=== PATIENT | female | born 1965 | race Caucasian/White ===

== ENCOUNTER 2017-04-08 13:19 | Emergency (ER) | payer BC ==
[2017-04-08 13:36] VITALS: BP 110/73; PULSE 67; RESP 20; TEMP 98.9
[2017-04-08] MEDS ORDERED: diphenhydrAMINE 50 MG CAP PO STA (13:46)
[2017-04-08] MEDS ORDERED: predniSONE 50 MG TAB PO STA (13:47)
[2017-04-08] MEDS ORDERED: FAMOTIDINE 20 MG TAB PO STA (13:47)
--- NOTE | 2017-04-08 13:51 | ED ---
General Adult HPI - General Chief complaint: Skin/Abscess/Foreign Body Stated complaint: bee sting-allergic reaction Time Seen by Provider: 04/08/17 13:41 Source: patient, RN notes reviewed Mode of arrival: ambulatory Limitations: no limitations - History of Present Illness Initial comments: Patient 52-year-old female who presents emergency room today with chief complaint of a bee sting that occurred 2 days ago. She states that she was stung twice both 2 days ago and one day ago. States she has a bee sting to the left side of her neck that occurred 2 days ago. Does also admit to a standing to the right thigh that occurred 1 day ago. She does admit that the areas are red and itchy. States not taken any medications for it. Denies any difficulty breathing, swallowing or any other complains. Patient denies any recent fever, chills, shortness of breath, chest pain, back pain, abdominal pain, nausea or vomiting, numbness or tingling, dysuria or hematuria, constipation or diarrhea, headaches or visual changes, or any other complaints. - Related Data Home Medications Medication Instructions Recorded Confirmed Sertraline [Zoloft] 100 mg PO DAILY 04/08/17 04/08/17 busPIRone HCL [busPIRone HCL] 5 mg PO DAILY 04/08/17 04/08/17 Previous Rx's Medication Instructions Recorded Famotidine [Pepcid] 20 mg PO BID #20 tablet 04/08/17 Hydrocortisone Cream 1 applic TOPICAL TID #1 cream..g. 04/08/17 [Hydrocortisone 1% Cream] diphenhydrAMINE [Benadryl] 1 - 2 tab PO Q6HR PRN #30 capsule 04/08/17 predniSONE 50 mg PO DAILY #3 tab 04/08/17 Allergies Allergy/AdvReac Type Severity Reaction Status Date / Time Sulfa (Sulfonamide Allergy Rash/Hives Verified 04/08/17 13:36 Antibiotics) Review of Systems ROS Statement: Those systems with pertinent positive or pertinent negative responses have been documented in the HPI. ROS Other: All systems not noted in ROS Statement are negative. Past Medical History Past Medical History: Unable to Obtain History of Any Multi-Drug Resistant Organisms: None Reported Past Surgical History: Orthopedic Surgery Past Psychological History: Depression Smoking Status: Never smoker Past Alcohol Use History: Daily Past Drug Use History: None Reported General Exam - General Exam Comments Initial Comments: General: The patient is awake and alert, in no distress, and does not appear acutely ill. Eye: Pupils are equal, round and reactive to light, extra-ocular movements are intact. No nystagmus. There is normal conjunctiva bilaterally. No signs of icterus. Ears, nose, mouth and throat: There are moist mucous membranes and no oral lesions. Neck: The neck is supple, there is no tenderness or JVD. Cardiovascular: There is a regular rate and rhythm. No murmur, rub or gallop is appreciated. Respiratory: Lungs are clear to auscultation, respirations are non-labored, breath sounds are equal. No wheezes, stridor, rales, or rhonchi. Musculoskeletal: Normal ROM, no tenderness. Strength 5/5. Sensation intact. Pulses equal bilaterally 2+. Neurological: A&O x 3. CN II-XII intact, There are no obvious motor or sensory deficits. Coordination appears grossly intact. Speech is normal. Skin: Redness and erythema to the left side of the neck and medial aspect of the right upper thigh. Areas consistent with hives local redness or warmth and swelling. Psychiatric: Cooperative, appropriate mood & affect, normal judgment. Limitations: no limitations Course Vital Signs 04/08/17 13:32 Temperature 98.9 F Pulse Rate 67 Respiratory 20 Rate Blood Pressure 110/73 O2 Sat by Pulse 100 Oximetry Medical Decision Making - Medical Decision Making Given doses of Benadryl, Pepcid, and prednisone orally here in the emergency room. Will be discharged home with prescriptions for these medications along with a topical hydrocortisone cream. Advised return for any other concerns. Disposition Clinical Impression: Allergic reaction Disposition: HOME SELF-CARE Condition: Good Instructions: Urticaria (ED) Additional Instructions: Please use medication as discussed. Please follow-up with family doctor in the next 2 days of symptoms have not improved. Please return to emergency room if the symptoms increase or worsen or for any other concerns. Prescriptions: diphenhydrAMINE [Benadryl] 1 - 2 tab PO Q6HR PRN #30 capsule PRN Reason: Allergic Reaction Famotidine [Pepcid] 20 mg PO BID #20 tablet Hydrocortisone Cream [Hydrocortisone 1% Cream] 1 applic TOPICAL TID #1 cream..g. predniSONE 50 mg PO DAILY #3 tab Referrals: Real Orozco MD [Primary Care Provider] - 1-2 days Time of Disposition: 13:50
== END 2017-04-08 13:55 | disposition home or self-care (01) ==
LOC: EC 13:19
DX: T63.441A Toxic effect of venom of bees, accidental (unintentional), initial encounter (principal); F32.9 Major depressive disorder, single episode, unspecified; Z88.2 Allergy status to sulfonamides; Z79.899 Other long term (current) drug therapy
CPT/HCPCS: 99282; J7512

== ENCOUNTER 2018-07-25 10:14 | Day surgery (SDC) | payer BC ==
[2018-07-22 13:59] VITALS: BMI 25.8
[~2018-07-25 10:14] MED LIST: LACTATED RINGERS 1,000 ML IV SCH
[2018-07-25 10:34] VITALS: RESP 16; TEMP 97.7
[2018-07-25] MEDS ORDERED: LIDOCAINE 1% 20 ML VIAL (10MG/ML) FOR IV START SQ ONE (10:43)
[2018-07-25] MEDS ORDERED: LIDOCAINE 1% INJ 10MG/ML (20 ML MDV) ONE (11:39)
[2018-07-25] MEDS ORDERED: PROPOFOL 10 MG/ML 20 ML VIAL IV ONE (11:39)
--- NOTE | 2018-07-25 12:15 | P.PCN ---
Date of Procedure: 07/25/18 Procedure(s) Performed: Procedure: Total colonoscopy. Preoperative diagnosis: Screening for neoplasia. Postoperative diagnosis: Sigmoid diverticulosis with no evidence of acute diverticulitis, strictures, polyps or cancer. Preparation: HalfLytely prep. Sedation: Was provided by anesthesia. Brief clinical history: The patient is a 53-year-old female who is scheduled for this evaluation for screening for neoplasia age being her risk factor as well as family history of colon cancer in her brother. She has no abdominal complaints, bleeding or anemia. This would be her first colonoscopy. Procedure: With the patient on her left lateral decubitus position and after informed consent and adequate sedation, the perianal area was inspected and it did not show any fissures or fistulas. There were no masses felt on digital rectal examination. The Olympus CFQ 160L video colonoscope was then inserted in the rectum in the usual fashion and advanced to the cecum. The mucosa appeared healthy. No polyps or tumors were seen. Several diverticular orifices were seen scattered in the sigmoid but I saw no evidence of acute diverticulitis or strictures. I retroflexed the endoscope in the rectum before the endoscope was withdrawn. The patient tolerated the procedure well. Plan: The patient was reassured. Discussed dietary measures. She will follow- up with you as planned and I recommended repeat exam in 5 years.
[2018-07-25 12:49] VITALS: BP 111/69; PULSE 61
== END 2018-07-25 12:49 | disposition home or self-care (01) ==
LOC: ORWHC2ENDO 10:14
DX: Z12.11 Encounter for screening for malignant neoplasm of colon (principal); K57.30 Diverticulosis of large intestine without perforation or abscess without bleeding; Z80.0 Family history of malignant neoplasm of digestive organs; F32.9 Major depressive disorder, single episode, unspecified; Z79.899 Other long term (current) drug therapy; Z88.2 Allergy status to sulfonamides
CPT/HCPCS: J2001; J2704; G0105; 45378

== ENCOUNTER 2018-09-20 12:24 | Emergency (ER) | payer BC ==
[2018-09-20 12:38] VITALS: RESP 18; TEMP 97.7
[2018-09-20] MEDS ORDERED: DIPH,PERTUS(ACELL)TETVAC-LF 0.5 ML VIAL IM ONE (13:16)
[2018-09-20] MEDS ORDERED: ACETAMINOPHEN TAB 500 MG TAB PO STA (13:16)
--- NOTE | 2018-09-20 13:23 | ED ---
General Adult HPI - General Chief complaint: Wound/Laceration Stated complaint: lt hand finger lac Source: patient, RN notes reviewed Mode of arrival: ambulatory Limitations: no limitations - History of Present Illness Initial comments: Patient is a 53 year old female who presents to the ER with complaint of left index and ring finger injury/avulsion that happened at noon today. She was doing woodworking at home and she cut her fingers on a tool. She reports that she is not up to date on her tetanus vaccination. She has not taken anything for pain. Denies blood thinner use. Denies loss of function of fingers. Patient denies any recent head trauma, loss of consciousness, fever, chills, shortness of breath, chest pain, back pain, abdominal pain, nausea or vomiting, numbness or tingling, headaches or visual changes, or any other complaints. - Related Data Home Medications Medication Instructions Recorded Confirmed Sertraline [Zoloft] 100 mg PO DAILY 04/08/17 07/22/18 busPIRone HCL 5 mg PO DAILY 04/08/17 07/22/18 Glucosamine Sulfate 500 mg PO DAILY 07/22/18 07/22/18 Lipoflavanoid 1 tab PO DAILY 07/22/18 Vit B Comp/E/FA/Soybean/Ckz808 1 each PO DAILY 07/22/18 07/22/18 [Natural Estrogen (Estronatural)] buPROPion HCL [Wellbutrin XL] 450 mg PO DAILY 07/22/18 07/22/18 Previous Rx's Medication Instructions Recorded Cephalexin [Keflex] 500 mg PO Q6HR 10 Days cap 09/20/18 Hydrocodone/Acetaminophen [Newbern 1 each PO Q6HR PRN #12 tab 09/20/18 5-325] Allergies Allergy/AdvReac Type Severity Reaction Status Date / Time Sulfa (Sulfonamide Allergy Rash/Hives Verified 09/20/18 12:38 Antibiotics) Review of Systems ROS Statement: Those systems with pertinent positive or pertinent negative responses have been documented in the HPI. ROS Other: All systems not noted in ROS Statement are negative. Past Medical History Past Medical History: No Reported History History of Any Multi-Drug Resistant Organisms: None Reported Past Surgical History: Orthopedic Surgery Additional Past Surgical History / Comment(s): Lypoma removed from shoulder & clavicle; wisdom teeth Past Anesthesia/Blood Transfusion Reactions: No Reported Reaction Past Psychological History: Depression Smoking Status: Never smoker Past Alcohol Use History: None Reported Past Drug Use History: None Reported - Past Family History Father Family Medical History: Deep Vein Thrombosis (DVT) General Exam Limitations: no limitations Head exam: Present: atraumatic, normocephalic Eye exam: Present: normal appearance Respiratory exam: Present: normal lung sounds bilaterally Cardiovascular Exam: Present: regular rate, normal rhythm Extremities exam: Present: full ROM, normal capillary refill, other (Sensation intact. Left index and ring fingers with skin avulsions over distal aspects. Able to maintain finger extension against resistance.) Neurological exam: Present: alert, oriented X3 Skin exam: Present: warm, dry Course Vital Signs 09/20/18 09/20/18 09/20/18 12:35 15:59 17:20 Temperature 97.7 F 97.7 F Pulse Rate 78 65 65 Respiratory 18 18 18 Rate Blood Pressure 138/88 119/78 119/78 O2 Sat by Pulse 99 95 95 Oximetry Procedures - Nerve Block Consent Obtained: verbal consent Time Out Performed: Yes Local Anesthetic Used: Lidocaine 1% Amount of anesthesia used: 8 (4 mL for each finger.) Side: left Nerve Blocks: digital Procedure Successful: Yes Complications: none Patient Tolerated Procedure: well, no complications Medical Decision Making - Medical Decision Making Tetanus vaccination updated. Given Tylenol for pain as patient would like to drive home. Patient would like a digital block of her two injured fingers. Left hand x-ray reveals comminuted fracture of distal phalanx left index finger. Possible foreign body distal phalanx left thumb. Extensive soft tissue injury distal index finger. Orthopedics (Too Stokes) recommended digital block, irrigation, approximation, bacitracin ointment, and wrapping. He also recommended Keflex. There was no tissue to approximate. Prescribed Keflex and Newbern. Opioid consent form completed. Case discussed in detail with attending physician Dr. Oswald. Disposition Clinical Impression: Avulsion of skin of finger Disposition: HOME SELF-CARE Condition: Good Instructions: Acute Wound Care (ED) Additional Instructions: Follow up with your PCP in 1 to 2 days. Please make an appointment with orthopedics and follow-up in 1-2 days. Return to the emergency department if any redness, swelling, drainage or fevers as these could be signs of an infection. Please take antibiotics as prescribed. Return to the emergency department for any other concerns. Prescriptions: Cephalexin [Keflex] 500 mg PO Q6HR 10 Days cap Hydrocodone/Acetaminophen [Newbern 5-325] 1 each PO Q6HR PRN #12 tab PRN Reason: Pain Is patient prescribed a controlled substance at d/c from ED?: Yes When asked, does pt state using other controlled substances?: No If prescribed controlled substance>3 days was MAPS reviewed?: Prescribed <3 Days If opioid is for acute pain is fill amount 7 days or less?: Yes If Rx opioid, was Start Talking consent form obtained?: Yes Referrals: Real Orozco MD [Primary Care Provider] - 1-2 days [place] Alvarez PAC [PHYSICIAN RIGHT OF WAY AGENT] - 1-2 days Time of Disposition: 16:55
--- NOTE | 2018-09-20 13:51 | XR ---
EXAMINATION TYPE: XR hand complete LT DATE OF EXAM: 09/20/2018 COMPARISON: None HISTORY: Laceration distal second phalanx TECHNIQUE: Three-view left hand FINDINGS: There is a laceration of the distal portion index finger left hand. There is a comminuted f racture of the diaphysis of the distal phalanx left index finger. Extensive soft tissue injury is pre sent along the medial portion of the index finger. Note is made of a radiopaque foreign body of the tip of the thumb. Consider foreign body within the n ail. IMPRESSION: 1. Comminuted fracture distal phalanx left index finger. 2. Possible foreign body at the distal phalanx left thumb 3. Extensive soft tissue injury distal index finger
[2018-09-20] MEDS ORDERED: LIDOCAINE 1% INJ 10MG/ML (20 ML MDV) SQ STA (14:23)
[2018-09-20 15:59] VITALS: BP 119/78; PULSE 65
== END 2018-09-20 17:20 | disposition home or self-care (01) ==
LOC: EC 12:24
DX: S61.201A Unspecified open wound of left index finger without damage to nail, initial encounter (principal); S61.205A Unspecified open wound of left ring finger without damage to nail, initial encounter; S62.631A Displaced fracture of distal phalanx of left index finger, initial encounter for closed fracture; F32.9 Major depressive disorder, single episode, unspecified; Z88.2 Allergy status to sulfonamides; Z79.899 Other long term (current) drug therapy; Z23 Encounter for immunization; W27.8XXA Contact with other nonpowered hand tool, initial encounter; Y93.89 Activity, other specified; Y92.009 Unspecified place in unspecified non-institutional (private) residence as the place of occurrence of the external cause
CPT/HCPCS: 73130; 90715; 99283; 90471; 64450; J2001

== ENCOUNTER → 2020-12-15 | Outpatient (CLI) | payer BC ==
--- NOTE | 2020-12-15 13:20 | MM ---
Reason for exam: screening (asymptomatic). Last mammogram was performed 4 years and 10 months ago. History: Patient is postmenopausal and had first child at age 39. Family history of breast cancer in paternal grandmother at age 60. Physical Findings: A clinical breast exam by your physician is recommended on an annual basis and results should be correlated with mammographic findings. MG 3D Screening Mammo W/Cad Bilateral CC and MLO view(s) were taken. Prior study comparison: February 03, 2016, bilateral MG 3d screening mammo w/cad. August 27, 2014, bilateral MG screening mammo w CAD. The breast tissue is heterogeneously dense. This may lower the sensitivity of mammography. There is no discrete abnormality. No significant changes when compared with prior studies. ASSESSMENT: Negative, BI-RAD 1 RECOMMENDATION: Routine screening mammogram of both breasts in 1 year.
== END | disposition home or self-care (01) ==
LOC: RADMAMWWP 07:38
PROVIDERS: ATTEND Family Medicine
DX: Z12.31 Encounter for screening mammogram for malignant neoplasm of breast (principal)
CPT/HCPCS: 77063; 77067

== ENCOUNTER 2021-11-09 06:44 | Day surgery (SDC) | payer BC ==
[2021-11-07 12:19] VITALS: BMI 25.6
--- NOTE | 2021-11-08 15:25 | HP ---
HISTORY AND PHYSICAL DATE OF SURGERY: 11/09/2021 Adali Ortega is a 56-year-old patient seen with progressive left shoulder pain. We discussed options for treatment. She elected to proceed with left shoulder arthroscopy. Consent was obtained. PAST MEDICAL HISTORY: Allergic rhinitis. PAST SURGICAL HISTORY: Noncontributory. DAILY MEDICATIONS: Ibuprofen, Zoloft. ALLERGIES: SULFA. SOCIAL HISTORY: She denies tobacco use. PHYSICAL EVALUATION OF THE LEFT SHOULDER: Flexion 150 degrees, abduction is 140 degrees, external rotation is 25 degrees with pain and weakness. Tenderness along the anterolateral rotator cuff and acromioclavicular joint. Impingement sign is positive at 90 degrees. Drop-arm sign is positive. Distal neurovascular exam is intact. Radiographs of the left shoulder revealed a type 2 acromion, evidence for acromioclavicular joint osteoarthritis as well as a calcific body consistent with calcific tendinitis. An MRI of the left shoulder revealed osteoarthritic changes about the acromioclavicular joint and bursitis. IMPRESSION: 1. Left shoulder impingement with calcific tendinitis. 2. Left shoulder acromioclavicular joint osteoarthritis. PLAN: Left shoulder arthroscopy with subacromial decompression, possible arthroscopic rotator cuff repair, Ron procedure and debridement. MMODL / IJN: [id number] /
[2021-11-09] MEDS ORDERED: LACTATED RINGERS 1,000 ML IV ONE (07:52)
[2021-11-09] MEDS ORDERED: ONDANSETRON 4 MG/2 ML VIAL IVP ONE (07:53)
[2021-11-09] MEDS ORDERED: DEXAMETHASONE SOD PHOSPHATE 4 MG/ML 1 ML VIAL IVP ONE (07:53)
[2021-11-09] MEDS ORDERED: fentaNYL (PF) 50 MCG/ML 2 ML AMP IV ONE (07:58)
[2021-11-09] MEDS ORDERED: MIDAZOLAM 2 MG/2 ML VIAL IV ONE (07:58)
[2021-11-09] MEDS ORDERED: fentaNYL (PF) 50 MCG/ML 2 ML AMP ONE (08:25)
[2021-11-09] MEDS ORDERED: PROPOFOL 10 MG/ML 20 ML VIAL IV ONE (08:25)
[2021-11-09] MEDS ORDERED: LIDOCAINE 1% INJ 10MG/ML (20 ML MDV) ONE (08:25)
[2021-11-09] MEDS ORDERED: SUCCINYLCHOLINE CHLORIDE 100 MG/5 ML SYR IV ONE (08:25)
[2021-11-09] MEDS ORDERED: ROPIVACAINE 5 MG/ML 30 ML VIAL ONE (08:25)
--- NOTE | 2021-11-09 09:41 | P.ANPRN ---
Procedure Note - Anesthesia - Nerve Block Performed Left Interscalene Single Time Out Performed: Yes ([id number]) Date of Procedure: 11/09/21 Procedure Start Time: 07:58 Procedure Stop Time: 08:03 Location of Patient: PreOp Indication: Acute Post-Operative Pain, Requested by Surgeon Specifically requested for management of pain by DrRoni: Lj Morrissey Sedation Type: Sedate with meaningful contact maintained Preparation: Sterile Prep Position: Supine Catheter: None Needle Types: Pajunk Needle Gauge: 21 Ultrasound used to visualize needle placement: Yes Ultrasound used to observe medication spread: Yes Injectate: 0.5% Ropivacaine (see comment for volume) (30cc) Blood Aspirated: No Pain Paresthesia on Injection Noted: No Resistance on Injection: Normal Image Stored and Saved: Yes Events: Uneventful and Well Tolerated
--- NOTE | 2021-11-09 09:46 | P.OP ---
Date of Procedure: 11/09/21 Preoperative Diagnosis: Left shoulder impingement Postoperative Diagnosis: 1. Left shoulder rotator cuff tear 2. Left shoulder impingement 3. Left shoulder acromioclavicular joint osteoarthritis 4. Left shoulder superficial anterior labral tear Procedure(s) Performed: 1. Left shoulder arthroscopic rotator cuff repair 2. Left shoulder arthroscopic Ron procedure 3. Left shoulder arthroscopic subacromial decompression 4. Left shoulder arthroscopic debridement labral tear Implants: 14.75 Arthrex swivel lock anchor Anesthesia: GETA, regional (Interscalene block) Surgeon: Lj Morrissey Elevator Conductor #1: Fabian Stokes Estimated Blood Loss (ml): 8 Pathology: none sent Condition: stable Disposition: PACU Indications for Procedure: 56-year-old patient seen with progressive left shoulder pain. After treatment options were discussed with her, she elected to proceed with arthroscopy. Operative Findings: See description of procedure Description of Procedure: Patient underwent an interscalene block by department of anesthesia. The patient was then taken to the operative suite. The patient underwent a general anesthetic by the department of anesthesia. The patient was placed into a lateral position and secured. There was appropriate padding of the bony prominence. Left shoulder was then prepped and draped in normal sterile orthopedic fashion. We placed the extremity in 10 pounds of longitudinal traction. A posterior incision was now made for a posterior working portal site. The trocar and cannula were inserted into the glenohumeral joint. Arthroscopy was initiated. Spinal needle was now inserted anteriorly, to ascertain the anterior working portal site. An incision was now made in that area, a trocar was inserted followed by a probe. There was some superficial tearing of the anterior labrum. The remainder labrum appeared stable. The glenohumeral joint was stable with no evidence for chondromalacia. The biceps tendon and anchor appeared stable. I debrided out the superficial labral tear anteriorly. I again probe the labrum and it was stable. Instruments now removed from the glenohumeral joint. Utilizing the posterior working portal site, the trocar and cannula were inserted into the subacromial space. Arthroscopy initiated. I made an incision 2 fingerbreadths lateral to the acromion. I introduced my trocar followed by my ArthroCare ablator. I now began ablating thick subacromial bursal tissue, which exposed the undersurface of the anterior acromion. There was diminished subacromial space. There was a very prominent anterior acromion. A motorized bur was introduced and a subacromial decompression was performed. I also excised some osteophytes off the inferior aspect of the distal clavicle. The AC joint was visualized and noted to be fairly arthritic. The motorized bur was introduced in the anterior portal site and a Ron procedure was performed without difficulty, decompressing the AC joint nicely. I turned my attention to the rotator cuff. There area of significant partial tearing along the distal supraspinatus centrally. Upon probing the area was a full-thickness perforation present. I debrided the margins getting down to stable tendon tissue. The defect measured proximal 11.5 cm and was freely mobile over the footprint. I abraded the footprint with a motorized bur. I now with assistance of Too GARNICA passed 2 everted mattress sutures through good bites of rotator cuff tendon. I now punched a hole in the footprint area for insertion of an anchor. All 4 limbs of suture were passed through the eyelet of a 4.75 Arthrex swivel lock anchor. I now placed the eyelet into the pre-punched hole. I held in place while Too GARNICA tensioned all 4 suture limbs and deployed anchor with good fixation noted. All residual suture limbs were now clipped. We had good compression of the tendon along the entire footprint. Instruments now removed from the portal sites. All portal sites were approximated with nylon suture. Sterile dressings were applied followed by a shoulder sling. Fabian GARNICA assisted in this complex case. The patient was awakened, transferred to a bed, and taken to recovery in stable condition.
[2021-11-09 09:51] VITALS: TEMP 97.1
[2021-11-09 10:38] VITALS: BP 145/85; PULSE 63; RESP 16
== END 2021-11-09 11:02 | disposition home or self-care (01) ==
LOC: OR 06:44
PROVIDERS: ATTEND Orthopaedic Surgery
DX: M75.42 Impingement syndrome of left shoulder (principal); M75.102 Unspecified rotator cuff tear or rupture of left shoulder, not specified as traumatic; M25.812 Other specified joint disorders, left shoulder; M19.012 Primary osteoarthritis, left shoulder; S43.432A Superior glenoid labrum lesion of left shoulder, initial encounter; X58.XXXA Exposure to other specified factors, initial encounter; F41.9 Anxiety disorder, unspecified; F32.A Depression, unspecified; J30.9 Allergic rhinitis, unspecified; Z79.899 Other long term (current) drug therapy; Z79.1 Long term (current) use of non-steroidal anti-inflammatories (NSAID); Z88.2 Allergy status to sulfonamides
CPT/HCPCS: 64415; 76942; 29826; 29827; 29824; C1713; J2250; J1100; J0690; J2405; J2001; J3010; J2795; J0330; J2704

== ENCOUNTER 2024-04-13 21:53 | Inpatient (IN) | payer BC ==
[2024-04-13] MEDS: SODIUM CHLORIDE 0.9% 1,000 ML IV STA ×3 (23:06→23:12)
[2024-04-13] MEDS: PANTOPRAZOLE 40 MG/10 ML VIAL IVP STA (23:08)
[2024-04-13] MEDS: KETOROLAC 15 MG/ML 1 ML VIAL IVP STA (23:10)
[2024-04-13 23:11] LABS: Basophils # (A) 0.1 k/uL (0-0.2); Basophils % (A) 0 %; Eosinophils # (A) 0.2 k/uL (0-0.7); Eosinophils % (A) 1 %; HCT 41.5 % (34.0-46.0); HGB 13.7 gm/dL (11.4-16.0); Lymphocytes # (A) 1.1 k/uL (1.0-4.8); Lymphocytes % (A) 6 %; MCH 28.3 pg (25.0-35.0); MCV 85.9 fL (80.0-100.0); Mean Platelet Volume 7.3; Monocytes # (A) 0.8 k/uL (0-1.0); Monocytes % (A) 4 %; Neutrophils # (A) 17.1 k/uL (1.3-7.7); Neutrophils % (A) 88 %; Platelet Count 244 k/uL (150-450); RBC 4.83 m/uL (3.80-5.40); RDW 12.4 % (11.5-15.5); WBC 19.4 k/uL (3.8-10.6)
[2024-04-13] MEDS: ONDANSETRON 4 MG/2 ML VIAL IVP STA (23:12)
[2024-04-13 23:21] LABS: ALT 17 U/L (4-34); AST 17 U/L (14-36); African American GFR (CKD) >90 (>60 ml/min/1.73 sqM); Albumin 4.1 g/dL (3.5-5.0); Alkaline Phosphatase 75 U/L (38-126); Amylase 33 U/L (30-110); Anion Gap 9 mmol/L; Blood Urea Nitrogen 11 mg/dL (7-17); Calcium 10.6 mg/dL (8.4-10.2); Carbon Dioxide 22 mmol/L (22-30); Chloride 103 mmol/L (98-107); Glucose 116 mg/dL (74-99); Lipase 64 U/L (23-300); Non-African American GFR(CKD) >90 (>60 ml/min/1.73 sqM); Potassium 4.2 mmol/L (3.5-5.1); Sodium 134 mmol/L (137-145); Total Protein 6.6 g/dL (6.3-8.2)
--- NOTE | 2024-04-14 00:26 | CT ---
EXAMINATION TYPE: CT abdomen pelvis w con DATE OF EXAM: 04/14/2024 HISTORY: Pt. presents to ED w/ abd. pain located in the center of abd. Pt. has been vomiting, denies diarrhea. Pt. attempted to take nights meds unable to keep down. Pt. has had low grade fever at home. CT DLP: 724.2mGycm Automated Exposure Control for Dose Reduction was Utilized. CONTRAST: CT scan of the abdomen and pelvis is performed with IV Contrast, patient injected with 100 mL of Isov ue 300. COMPARISON: None. FINDINGS: LUNG BASES: No significant abnormality is appreciated. LIVER/GB: No significant abnormality is appreciated. PANCREAS: No significant abnormality is seen. SPLEEN: No significant abnormality is seen. ADRENALS: No significant abnormality is seen. KIDNEYS: No significant abnormality is seen. BOWEL: Appendicolith in the base of the appendix coronal image 41. Appendix abnormally dilated up to 11 mm coronal image 38 There is [id number] severe ill-defined fluid and fat stranding in the right pelvis surrounding the appendix. No well-formed fluid collection or abscess. Some reactive comer ge with abnormal wall thickening of adjacent small bowel loops near this level. UTERUS/ADNEXA: Anteverted uterus. Small small amount of free fluid in the pelvis. Some scattered colo maru diverticula greatest distally. No CT evidence for acute diverticulitis. No abnormal small or larg e bowel dilatation. LYMPH NODES: No greater than 1cm abdominal or pelvic lymph nodes are appreciated. OSSEOUS STRUCTURES: No significant abnormality is seen. OTHER: No significant additional abnormality is seen. IMPRESSION: CT findings consistent with acute appendicitis as detailed above. Critical results indicate ordering emergency room physician by phone call at time of dictation.
[2024-04-14] MEDS ORDERED: MORPHINE SULFATE 4 MG/ML SYRINGE IV PRN (00:38)
[2024-04-14] MEDS ORDERED: NALOXONE 0.4 MG/ML 1 ML VIAL IV PRN ×2 (00:38→09:44)
--- NOTE | 2024-04-14 00:45 | ED ---
General Adult HPI - General Chief complaint: Abdominal Pain Stated complaint: Abdominal Pain Time Seen by Provider: 04/13/24 22:50 Source: patient, RN notes reviewed, old records reviewed Mode of arrival: ambulatory Limitations: no limitations - History of Present Illness Initial comments: Patient is a 59-year-old female who presents emergency department complaining of abdominal pain. Is been ongoing for the last 2 days. Endorses nausea and vomiting and has had poor oral intake over this period of time. Denies any diarrhea or constipation. Denies any urinary complaints. Denies any vaginal discharge or bleeding. Is concerned that she either has a hemorrhoid or possible rectal prolapse and wishes for evaluation. Denies chest pain or shortness of breath. Has no acute complaints. Presents for further evaluation at this time. No significant intra-abdominal surgery in the past. - Related Data Home Medications Medication Instructions Recorded Confirmed Sertraline [Zoloft] 200 mg PO HS 04/08/17 11/07/21 busPIRone HCL 5 mg PO HS 04/08/17 11/07/21 Glucosamine Sulfate 500 mg PO DAILY 07/22/18 11/07/21 Vit B Comp/E/FA/Soybean/Icv139 1 each PO DAILY 07/22/18 11/07/21 [Natural Estrogen (Estronatural)] buPROPion HCL [Wellbutrin XL] 300 mg PO HS 07/22/18 11/07/21 buPROPion XL [Wellbutrin XL] 150 mg PO HS 11/07/21 11/07/21 Previous Rx's Medication Instructions Recorded HYDROcodone/APAP 5-325MG [[place] 1 tab PO Q6HR PRN #21 tab 11/09/21 5-325] Allergies Allergy/AdvReac Type Severity Reaction Status Date / Time Sulfa (Sulfonamide Allergy Rash/Hives Verified 04/13/24 22:06 Antibiotics) Review of Systems ROS Statement: Those systems with pertinent positive or pertinent negative responses have been documented in the HPI. Review of Systems: CONST: Denies fever EYES: Denies blurry vision ENT: Denies nasal congestion C/V: Denies Chest pain RESP: Denies shortness of breath GI: Endorses abdominal pain : Denies dysuria SKIN: Denies rash. MSK: Denies joint pain. NEURO: Denies headache ROS Other: All systems not noted in ROS Statement are negative. Past Medical History Past Medical History: No Reported History History of Any Multi-Drug Resistant Organisms: None Reported Past Surgical History: Orthopedic Surgery Additional Past Surgical History / Comment(s): Lypoma removed from shoulder & clavicle; wisdom teeth Past Anesthesia/Blood Transfusion Reactions: No Reported Reaction Past Psychological History: Depression Past Alcohol Use History: None Reported - Past Family History Father Family Medical History: Deep Vein Thrombosis (DVT) General Exam - General Exam Comments Initial Comments: General: Appears in mild distress secondary to abdominal pain. HEAD: Normal with no signs of head trauma. EYES: PERRLA, EOMI, conjunctiva normal, no discharge. ENT: Hearing grossly intact, normal oropharynx. Dry mucous membrane RESPIRATORY: Clear breath sounds bilaterally. No wheezes, rales, or rhonchi. C/V: Regular rate and rhythm. S1 and S2 auscultated, no edema, peripheral pulses 2+ and intact throughout ABD: Abdomen soft, nondistended. Tender palpation periumbilically. No guarding or rebound tenderness. No peritoneal signs. EXT: Normal range of motion, no obvious deformity SKIN: No rashes or lesions observed on exposed skin. NEURO: Alert and oriented x 4. Limitations: no limitations Course Vital Signs 04/13/24 04/14/24 22:00 00:40 Temperature 99.3 F Pulse Rate 101 H 80 Respiratory 16 17 Rate Blood Pressure 91/63 114/67 O2 Sat by Pulse 97 98 Oximetry Medical Decision Making - Medical Decision Making Was pt. sent in by a medical professional or institution ([facility] Steele, [facility], urgent care, hospital, or [facility]...) When possible be specific @ -No Did you speak to anyone other than the patient for history (EMS, parent, family, police, friend...)? What history was obtained from this source @ -No Did you review nursing and triage notes (agree or disagree)? Why? @ -I reviewed and agree with nursing and triage notes Were old charts reviewed (outside hosp., previous admission, EMS record, old EKG, old radiological studies, urgent care reports/EKG's, [facility] records)? Report findings @ -No old charts were reviewed Differential Diagnosis (chest pain, altered mental status, abdominal pain women, abdominal pain men, vaginal bleeding, weakness, fever, dyspnea, syncope, headache, dizziness, GI bleed, back pain, seizure, CVA, palpatations, mental health, musculoskeletal)? @ -Differential Abdominal Pain Women: Appendicitis, Cholecystitis, diverticulosis, ischemic bowel, pancreatitis, hepatitis, UTI, gastroenteritis, AAA, incarcerated hernia, bowel obstruction, constipation, inflammatory bowel, hepatitis, peptic ulcer disease, splenic infarction, perforated viscus, vulvitis, ovarian torsion, PID, kidney stone, placenta abruption, this is not meant to be an all-inclusive list EKG interpreted by me (3pts min.). @ -As above X-rays interpreted by me (1pt min.). @ -None done CT interpreted by me (1pt min.). @ -CT reveals acute appendicitis U/S interpreted by me (1pt. min.). @ -None done What testing was considered but not performed or refused? (CT, X-rays, U/S, labs)? Why? @ -None What meds were considered but not given or refused? Why? @ -None Did you discuss the management of the patient with other professionals (professionals i.e. , PA, [employer], lab, RT, psych nurse, social media project manager, ergonomist, teacher, field health officer, case management social worker)? Give summary @ -Discussed with on-call surgeon Dr. Hernandez who accepted the admission. Was smoking cessation discussed for >3mins.? @ -No Was critical care preformed (if so, how long)? @ -No Were there social determinants of health that impacted care today? How? (Homelessness, low income, unemployed, alcoholism, drug addiction, transportation, low edu. Level, literacy, decrease access to med. care, custodial, rehab)? @ -No Was there de-escalation of care discussed even if they declined (Discuss DNR or withdrawal of care, Hospice)? DNR status @ -No What co-morbidities impacted this encounter? (DM, HTN, Smoking, COPD, CAD, Cancer, CVA, ARF, Chemo, Hep., AIDS, mental health diagnosis, sleep apnea, morbid obesity)? @ -None Was patient admitted / discharged? Hospital course, mention meds given and route, prescriptions, significant lab abnormalities, going to OR and other pertinent info. @ -Patient presents with abdominal pain for 2 days. We will obtain abdominal workup, CT imaging. She does appear dehydration will be given IV fluids as well as symptomatic treatment with IV Toradol and Zofran. Patient in agreement this plan. Patient also received IV Protonix. She received a total of 2 L fluid bolus. Vital signs remarkable for slight lower blood pressure on presentation which improved with IV fluids. EKG showed no signs of acute ischemia. CT reveals acute appendicitis. Labs remarkable for leukocytosis of 19.4. Lactic acid within normal limits. Vital signs unremarkable. I did the patient. She is made NPO. Blood cultures obtained and sent. Patient started on IV Zosyn. I spoke with on-call surgeon, Dr. Hernandez who accepted the admission was in agreement this plan. Medicine consulted for medical management, [facility] physician group Dr. Adrian. Undiagnosed new problem with uncertain prognosis? @ -No Drug Therapy requiring intensive monitoring for toxicity (Heparin, Nitro, Insulin, Cardizem)? @ -No Were any procedures done? @ -No Diagnosis/symptom? @ -Appendicitis Acute, or Chronic, or Acute on Chronic? @ -Acute Uncomplicated (without systemic symptoms) or Complicated (systemic symptoms)? @ -Complicated Side effects of treatment? @ -No Exacerbation, Progression, or Severe Exacerbation? @ -No Poses a threat to life or bodily function? How? (Chest pain, [place], [place], pneumonia, PE, COPD, DKA, ARF, appy, cholecystitis, CVA, Diverticulitis, Homicidal, Su[place], threat to staff... and all critical care pts) @ -Yes - Lab Data Result diagrams: 04/13/24 22:38 04/13/24 22:38 Lab Results 04/13/24 04/13/24 04/13/24 Range/Units 22:38 22:38 22:38 WBC 19.4 H (3.8-10.6) k/uL RBC 4.83 (3.80-5.40) m/uL Hgb 13.7 (11.4-16.0) gm/dL Hct 41.5 (34.0-46.0) % MCV 85.9 (80.0-100.0) fL MCH 28.3 (25.0-35.0) pg MCHC 33.0 (31.0-37.0) g/dL RDW 12.4 (11.5-15.5) % Plt Count 244 (150-450) k/uL MPV 7.3 Neutrophils % 88 % Lymphocytes % 6 % Monocytes % 4 % Eosinophils % 1 % Basophils % 0 % Neutrophils # 17.1 H (1.3-7.7) k/uL Lymphocytes # 1.1 (1.0-4.8) k/uL Monocytes # 0.8 (0-1.0) k/uL Eosinophils # 0.2 (0-0.7) k/uL Basophils # 0.1 (0-0.2) k/uL Sodium 134 L (137-145) mmol/L Potassium 4.2 (3.5-5.1) mmol/L Chloride 103 (98-107) mmol/L Carbon Dioxide 22 (22-30) mmol/L Anion Gap 9 mmol/L BUN 11 (7-17) mg/dL Creatinine 0.72 (0.52-1.04) mg/dL Est GFR (CKD-EPI)AfAm >90 (>60 ml/min/1.73 sqM) Est GFR (CKD-EPI)NonAf >90 (>60 ml/min/1.73 sqM) Glucose 116 H (74-99) mg/dL Plasma Lactic Acid Buster 0.8 (0.7-2.0) mmol/L Calcium 10.6 H (8.4-10.2) mg/dL Total Bilirubin 1.0 (0.2-1.3) mg/dL AST 17 (14-36) U/L ALT 17 (4-34) U/L Alkaline Phosphatase 75 (38-126) U/L Total Protein 6.6 (6.3-8.2) g/dL Albumin 4.1 (3.5-5.0) g/dL Amylase 33 (30-110) U/L Lipase 64 (23-300) U/L Influenza Type A (PCR) (Not Detectd) Influenza Type B (PCR) (Not Detectd) RSV (PCR) (Not Detectd) SARS-CoV-2 (PCR) (Not Detectd) 04/13/24 Range/Units 22:38 WBC (3.8-10.6) k/uL RBC (3.80-5.40) m/uL Hgb (11.4-16.0) gm/dL Hct (34.0-46.0) % MCV (80.0-100.0) fL MCH (25.0-35.0) pg MCHC (31.0-37.0) g/dL RDW (11.5-15.5) % Plt Count (150-450) k/uL MPV Neutrophils % % Lymphocytes % % Monocytes % % Eosinophils % % Basophils % % Neutrophils # (1.3-7.7) k/uL Lymphocytes # (1.0-4.8) k/uL Monocytes # (0-1.0) k/uL Eosinophils # (0-0.7) k/uL Basophils # (0-0.2) k/uL Sodium (137-145) mmol/L Potassium (3.5-5.1) mmol/L Chloride (98-107) mmol/L Carbon Dioxide (22-30) mmol/L Anion Gap mmol/L BUN (7-17) mg/dL Creatinine (0.52-1.04) mg/dL Est GFR (CKD-EPI)AfAm (>60 ml/min/1.73 sqM) Est GFR (CKD-EPI)NonAf (>60 ml/min/1.73 sqM) Glucose (74-99) mg/dL Plasma Lactic Acid Buster (0.7-2.0) mmol/L Calcium (8.4-10.2) mg/dL Total Bilirubin (0.2-1.3) mg/dL AST (14-36) U/L ALT (4-34) U/L Alkaline Phosphatase (38-126) U/L Total Protein (6.3-8.2) g/dL Albumin (3.5-5.0) g/dL Amylase (30-110) U/L Lipase (23-300) U/L Influenza Type A (PCR) Not Detected (Not Detectd) Influenza Type B (PCR) Not Detected (Not Detectd) RSV (PCR) Not Detected (Not Detectd) SARS-CoV-2 (PCR) Not Detected (Not Detectd) - EKG Data -: EKG Interpreted by Me EKG Comments: 12-lead Electrocardiogram Interpretation Note EKG was reviewed and interpreted by myself. 12-lead ECG performed at 2315 is interpreted by me as revealing normal sinus rhythm at a rate of 75 beats per minute. [place] is normal. [place] interval is 142 ms, QRS duration is 83 ms, QTc is 390 ms.. There were no ST or T wave abnormalities to suggest myocardial ischemia or injury. R wave progression across the precordium was satisfactory. By my interpretation this EKG is non-diagnostic for acute ischemia. Disposition Clinical Impression: Appendicitis Disposition: ADMITTED IP TO THIS HOSP Condition: Stable Referrals: Real Orozco MD [Primary Care Provider] - 1-2 days Time of Disposition: 00:38
[2024-04-14] MEDS: PIPERACILLIN-TAZOBACTAM 3.375 GM in SODIUM CHLORIDE 0.9% 100 ML IVPB SCH (00:52)
[2024-04-14 03:08] LABS: INR 1.1 (<1.2); Partial Thromboplastin Time 26.9 sec (22.0-30.0); Prothrombin Time 11.9 sec (10.0-12.5)
[2024-04-14] MEDS: IV FLUID CONTINUATION 1,000 ML IV ONE (08:00)
[2024-04-14] MEDS: ONDANSETRON 4 MG/2 ML VIAL IVP PRN (08:19)
[2024-04-14] MEDS: DEXAMETHASONE SOD PHOSPHATE 4 MG/ML 1 ML VIAL IVP STA (08:20)
[2024-04-14] MEDS: FAMOTIDINE 20 MG/2 ML VIAL IV STA (08:22)
[2024-04-14] MEDS: diphenhydrAMINE 50 MG/ML 1 ML VIAL IVP STA (08:26)
[2024-04-14] MEDS: HEPARIN SODIUM,PORCINE 5,000 UNIT/ML 1 ML VIAL SQ STA (08:29)
[2024-04-14] MEDS ORDERED: MIDAZOLAM 2 MG/2 ML VIAL ONE (08:44)
[2024-04-14] MEDS ORDERED: SUCCINYLCHOLINE CHLORIDE 200 MG/10 ML VIAL IV ONE (08:44)
[2024-04-14] MEDS ORDERED: PHENYLEPHRINE-0.9% NACL SYG 1,000 MCG/10 ML SYRINGE ONE (08:44)
[2024-04-14] MEDS ORDERED: fentaNYL (PF) 50 MCG/ML 2 ML AMP ONE (08:44)
[2024-04-14] MEDS ORDERED: PROPOFOL 10 MG/ML 20 ML VIAL IV ONE (08:44)
[2024-04-14] MEDS ORDERED: ROCURONIUM 10 MG/ML (5 ML VIAL) IV ONE (08:44)
[2024-04-14] MEDS ORDERED: KETOROLAC 15 MG/ML 1 ML VIAL ONE (08:44)
[2024-04-14] MEDS ORDERED: LIDOCAINE 1% INJ 10MG/ML (20 ML MDV) ONE (08:44)
[2024-04-14] MEDS ORDERED: GLYCOPYRROLATE 0.2 MG/ML 2 ML VIAL ONE (08:44)
[2024-04-14] MEDS ORDERED: NEOSTIGMINE 1 MG/ML 10 ML VIAL ONE (08:44)
--- NOTE | 2024-04-14 08:52 | P.GSHP ---
History of Present Illness H&P Date: 04/14/24 Chief Complaint: Acute appendicitis This is a 59-year-old female whose had a 1 week history of nausea vomiting abdominal pain. Patient was seen emergency room and found to have evidence of acute appendicitis. Past Medical History Past Medical History: No Reported History History of Any Multi-Drug Resistant Organisms: None Reported Past Surgical History: Orthopedic Surgery Additional Past Surgical History / Comment(s): Lypoma removed from shoulder & clavicle; wisdom teeth Past Anesthesia/Blood Transfusion Reactions: No Reported Reaction Past Psychological History: Depression Past Alcohol Use History: None Reported - Past Family History Father Family Medical History: Deep Vein Thrombosis (DVT) Medications and Allergies Home Medications Medication Instructions Recorded Confirmed Type Sertraline [Zoloft] 100 mg PO HS 04/08/17 04/14/24 History busPIRone HCL 5 mg PO BID 04/08/17 04/14/24 History buPROPion HCL [Wellbutrin XL] 300 mg PO HS 07/22/18 04/14/24 History Semaglutide [Wegovy] 1 mg SQ TH 04/14/24 04/14/24 History Allergies Allergy/AdvReac Type Severity Reaction Status Date / Time Sulfa (Sulfonamide Allergy Rash/Hives Verified 04/14/24 08:10 Antibiotics) Surgical - Exam Vital Signs Temp Pulse Resp BP Pulse Ox 99.3 F 101 H 16 91/63 97 04/13/24 22:00 04/13/24 22:00 04/13/24 22:00 04/13/24 22:00 04/13/24 22:00 - General well developed, well nourished, no distress - Eyes PERRL - ENT normal pinna - Neck no masses - Respiratory normal expansion - Cardiovascular Rhythm: regular - Abdomen Right lower quadrant pain Abdomen: soft Results - Labs 04/13/24 22:38 04/13/24 22:38 Abnormal Lab Results - Last 24 Hours (Table) 04/13/24 04/13/24 Range/Units 22:38 22:38 WBC 19.4 H (3.8-10.6) k/uL Neutrophils # 17.1 H (1.3-7.7) k/uL Sodium 134 L (137-145) mmol/L Glucose 116 H (74-99) mg/dL Calcium 10.6 H (8.4-10.2) mg/dL Diabetes panel 04/13/24 Range/Units 22:38 Sodium 134 L (137-145) mmol/L Potassium 4.2 (3.5-5.1) mmol/L Chloride 103 (98-107) mmol/L Carbon Dioxide 22 (22-30) mmol/L BUN 11 (7-17) mg/dL Creatinine 0.72 (0.52-1.04) mg/dL Glucose 116 H (74-99) mg/dL Calcium 10.6 H (8.4-10.2) mg/dL AST 17 (14-36) U/L ALT 17 (4-34) U/L Alkaline Phosphatase 75 (38-126) U/L Total Protein 6.6 (6.3-8.2) g/dL Albumin 4.1 (3.5-5.0) g/dL Calcium panel 04/13/24 Range/Units 22:38 Calcium 10.6 H (8.4-10.2) mg/dL Albumin 4.1 (3.5-5.0) g/dL Pituitary panel 04/13/24 Range/Units 22:38 Sodium 134 L (137-145) mmol/L Potassium 4.2 (3.5-5.1) mmol/L Chloride 103 (98-107) mmol/L Carbon Dioxide 22 (22-30) mmol/L BUN 11 (7-17) mg/dL Creatinine 0.72 (0.52-1.04) mg/dL Glucose 116 H (74-99) mg/dL Calcium 10.6 H (8.4-10.2) mg/dL Adrenal panel 04/13/24 Range/Units 22:38 Sodium 134 L (137-145) mmol/L Potassium 4.2 (3.5-5.1) mmol/L Chloride 103 (98-107) mmol/L Carbon Dioxide 22 (22-30) mmol/L BUN 11 (7-17) mg/dL Creatinine 0.72 (0.52-1.04) mg/dL Glucose 116 H (74-99) mg/dL Calcium 10.6 H (8.4-10.2) mg/dL Total Bilirubin 1.0 (0.2-1.3) mg/dL AST 17 (14-36) U/L ALT 17 (4-34) U/L Alkaline Phosphatase 75 (38-126) U/L Total Protein 6.6 (6.3-8.2) g/dL Albumin 4.1 (3.5-5.0) g/dL Assessment and Plan Assessment: Appendicitis. Will perform laparoscopic appendectomy.
[2024-04-14] MEDS: LIDOCAINE 1%-EPI 1:100,000 20 ML VIAL SQ ONE (08:57)
[2024-04-14] MEDS: LACTATED RINGERS 1,000 ML IV ONE (09:03)
--- NOTE | 2024-04-14 09:44 | P.OP ---
Date of Procedure: 04/14/24 Preoperative Diagnosis: Acute appendicitis Postoperative Diagnosis: Perforated appendicitis Procedure(s) Performed: Laparoscopic appendectomy Anesthesia: LUCAS Surgeon: Cedric Hernandez Estimated Blood Loss (ml): 5 Pathology: other (Appendix) Condition: stable Disposition: PACU Description of Procedure: R the patient's placed on the operating table in the supine position. The patient received general anesthesia. The abdomen was prepped and draped in the usual sterile fashion. The skin was anesthetized 1% local Xylocaine at the trocar sites. Using an 11 blade the skin was incised at the umbilicus. The umbilicus was grasped with a Whitney clamp and then a Veress needle was placed into the peritoneal cavity. Position of the Veress needle was confirmed with positive drop test. After adequate insufflation a 5 mm trocar was placed into the peritoneal cavity. The abdomen was further insufflated. And then the laparoscope was placed in the peritoneal cavity. Next a 5 mm trocar was placed in the midline suprapubic position. And then a 10 mm trocar was placed in the midline epigastric position. The patient was rotated with the right side up and in Trendelenburg. The appendix was visualized. The appendix appeared to be inflamed. There was perforation of the appendix seen the appendix was grasped and then using the Harmonic scissors the mesoappendix was divided. A PDS Endoloop was then placed around the base of the appendix. And then the appendix was divided using Harmonic scissors. The appendix was placed into an Endo Catch and brought out through the 10 mm trocar site. The abdomen was irrigated. There is no bleeding seen. A MARIANA drain was placed in the right lower quadrant brought to the epigastric port site. The trochars withdrawn. The skin was closed interrupted 3-0 Monocryl suture. Dermabond dressing was applied. Patient was sent to recovery room in stable condition.
[2024-04-14] MEDS: HYDROmorphone 1 MG/ML 1 ML SYRINGE IVP PRN (10:52)
[2024-04-14] MEDS: PANTOPRAZOLE 40 MG/10 ML VIAL IV SCH (10:52)
--- NOTE | 2024-04-14 11:05 | P.CONS ---
History of Present Illness - Reason for Consult Consult date: 04/14/24 - Chief Complaint Medical management - History of Present Illness 59-year-old woman with medical history of mood disorder presented for nausea, vomiting, abdominal pain. Patient was taken to the operating room for appendicitis which was noted. Medicine was consulted subsequently for medical management. Patient has no new complaints at this time, feels her surgery went well. She is sitting at bedside with no complaints of pain, fevers, chills. She has a drain in place which is draining serosanguineous fluid. She is hemodynamically stable. CBC shows leukocytosis to 19. Basic metabolic panel is mostly unremarkable. Viral panel is negative. All Systems reviewed and pertinent positives and negatives noted in HPI, all other symptoms are negative Gen: In NAD, non-toxic HEENT: normocephalic, atraumatic, hearing acuity is intant, mucous membranes moist CVS: perfusing all extremities well, no pitting edema, Respiratory: symmetric chest expansion, no accessory muscle use, GI: soft, NTTP, ND, : no suprapubic tenderness, no CVA tenderness MSK/Derm: no rashes, cyanosis Neuro: CN II-XII intact, no motor weakness, Psych: cooperative, euthymic mood, judgment and insight is intact Labs and images as above Assessment/plan: Mood disorder -Continue Wellbutrin, BuSpar, sertraline Patient is noted to be on semaglutide at home, we will follow her blood sugars and add insulin sliding scale if necessary Thank you for this consult. Will continue to follow along with you, please reach out if there are any questions or concerns. Past Medical History Past Medical History: No Reported History History of Any Multi-Drug Resistant Organisms: None Reported Past Surgical History: Orthopedic Surgery Additional Past Surgical History / Comment(s): Lypoma removed from shoulder & clavicle; wisdom teeth Past Anesthesia/Blood Transfusion Reactions: No Reported Reaction Past Psychological History: Depression Past Alcohol Use History: None Reported - Past Family History Father Family Medical History: Deep Vein Thrombosis (DVT) Medications and Allergies Home Medications Medication Instructions Recorded Confirmed Type Sertraline [Zoloft] 100 mg PO HS 04/08/17 04/14/24 History busPIRone HCL 5 mg PO BID 04/08/17 04/14/24 History buPROPion HCL [Wellbutrin XL] 300 mg PO HS 07/22/18 04/14/24 History Semaglutide [Wegovy] 1 mg SQ TH 04/14/24 04/14/24 History Allergies Allergy/AdvReac Type Severity Reaction Status Date / Time Sulfa (Sulfonamide Allergy Rash/Hives Verified 04/14/24 08:10 Antibiotics) Physical Exam Osteopathic Statement: *. No significant issues noted on an osteopathic structural exam other than those noted in the History and Physical/Consult. Vitals: Vital Signs Temp Pulse Pulse Pulse Resp BP BP 04/14/24 10:22 81 16 96/51 04/14/24 10:07 81 16 95/51 04/14/24 09:52 72 14 101/53 04/14/24 09:37 98.2 F 76 14 115/53 04/14/24 08:07 98.3 F 83 16 92/50 04/14/24 07:29 100.7 F H 85 18 90/46 04/14/24 06:00 91 17 95/51 04/14/24 00:40 80 17 114/67 04/13/24 22:00 99.3 F 101 H 16 91/63 Pulse Ox 04/14/24 10:22 98 04/14/24 10:07 100 04/14/24 09:52 100 04/14/24 09:37 100 04/14/24 08:07 96 04/14/24 07:29 94 L 04/14/24 06:00 95 04/14/24 00:40 98 04/13/24 22:00 97 Intake and Output 04/13/24 04/14/24 04/14/24 22:59 06:59 14:59 Intake Total 1300 Balance 1300 Intake: IV 1300 Other: Weight 68.039 kg 68.039 kg Results CBC & Chem 7: 04/13/24 22:38 04/13/24 22:38 Labs: Abnormal Lab Results - Last 24 Hours (Table) 04/13/24 04/13/24 Range/Units 22:38 22:38 WBC 19.4 H (3.8-10.6) k/uL Neutrophils # 17.1 H (1.3-7.7) k/uL Sodium 134 L (137-145) mmol/L Glucose 116 H (74-99) mg/dL Calcium 10.6 H (8.4-10.2) mg/dL
[2024-04-14] MEDS: KETOROLAC 15 MG/ML 1 ML VIAL IVP SCH (12:04)
[2024-04-14] MEDS: BENZOCAINE/MENTHOL LOZENG 1 EACH LOZENGE MUCOUS MEM PRN (21:36)
--- NOTE | 2024-04-14 22:11 | P.CONS ---
History of Present Illness - Reason for Consult Consult date: 04/14/24 Perforated appendicitis Requesting physician: Cedric Hernandez - Chief Complaint Abdominal pain x 2 days - History of Present Illness Patient is a 59-year-old female with past medical history significant depression presenting to the hospital for evaluation of abdominal pain and this patient symptom has been going on for 2 days before presentation to the hospital patient pain has been mostly in the right lower abdominal area patient describes the pain to be sharp, moderate intensity started radiation did have associated nausea and vomiting decreased oral intake but denies having any diarrhea did have some chills on presentation to the hospital patient did have a low-grade fever subsequently spiking fever 100.7 F patient was not tachycardic or hypotensive not hypoxic no need for supplemental oxygen patient did have white count of 19.4 with a left shift creatinine has been normal electrolytes are normal liver isms normal influenza RSV COVID testing was negative patient did have abdominal pelvis CT with the CT findings suggestive of acute appendicitis patient was taken to the OR noticed to have perforated appendicitis in this patient who status post laparoscopic appendectomy patient was started on Zosyn infectious disease was consulted for further management of antibiotic therapy Review of Systems Positive point and negatives has been mentioned in the HPI, complete review of systems was performed and all other systems are negative Past Medical History Past Medical History: No Reported History History of Any Multi-Drug Resistant Organisms: None Reported Past Surgical History: Orthopedic Surgery Additional Past Surgical History / Comment(s): Lypoma removed from shoulder & clavicle; wisdom teeth Past Anesthesia/Blood Transfusion Reactions: No Reported Reaction Past Psychological History: Depression Past Alcohol Use History: None Reported - Past Family History Father Family Medical History: Deep Vein Thrombosis (DVT) Medications and Allergies Home Medications Medication Instructions Recorded Confirmed Type Sertraline [Zoloft] 100 mg PO HS 04/08/17 04/14/24 History busPIRone HCL 5 mg PO BID 04/08/17 04/14/24 History buPROPion HCL [Wellbutrin XL] 300 mg PO HS 07/22/18 04/14/24 History Semaglutide [Wegovy] 1 mg SQ TH 04/14/24 04/14/24 History Allergies Allergy/AdvReac Type Severity Reaction Status Date / Time Sulfa (Sulfonamide Allergy Rash/Hives Verified 04/14/24 08:10 Antibiotics) Physical Exam Vitals: Vital Signs Temp Pulse Pulse Pulse Resp BP BP 04/14/24 10:22 81 16 96/51 04/14/24 10:07 81 16 95/51 04/14/24 09:52 72 14 101/53 04/14/24 09:37 98.2 F 76 14 115/53 04/14/24 08:07 98.3 F 83 16 92/50 04/14/24 07:29 100.7 F H 85 18 90/46 04/14/24 06:00 91 17 95/51 04/14/24 00:40 80 17 114/67 04/13/24 22:00 99.3 F 101 H 16 91/63 Pulse Ox 04/14/24 10:22 98 04/14/24 10:07 100 04/14/24 09:52 100 04/14/24 09:37 100 04/14/24 08:07 96 04/14/24 07:29 94 L 04/14/24 06:00 95 04/14/24 00:40 98 04/13/24 22:00 97 Intake and Output 04/13/24 04/14/24 04/14/24 22:59 06:59 14:59 Intake Total 1300 Balance 1300 Intake: IV 1300 Other: Weight 68.039 kg 68.039 kg GENERAL DESCRIPTION: Middle-aged female lying in bed, no distress. No tachypnea or accessory muscle of respiration use. HEENT: Shows Pallor , no scleral icterus. Oral mucous membrane is dry. No pharyngeal erythema or thrush NECK: Trachea central, no thyromegaly. LUNGS: Unlabored breathing. Clear to auscultation anteriorly. No wheeze or crackle. HEART: S1, S2, regular rate and rhythm. No loud murmur ABDOMEN: Soft, mild distention and tenderness EXTREMITIES: No edema of feet. SKIN: No rash, no masses palpable. NEUROLOGICAL: The patient is awake, alert, oriented x3, mood and affect normal. Results CBC & Chem 7: 04/13/24 22:38 04/13/24 22:38 Labs: Abnormal Lab Results - Last 24 Hours (Table) 04/13/24 04/13/24 Range/Units 22:38 22:38 WBC 19.4 H (3.8-10.6) k/uL Neutrophils # 17.1 H (1.3-7.7) k/uL Sodium 134 L (137-145) mmol/L Glucose 116 H (74-99) mg/dL Calcium 10.6 H (8.4-10.2) mg/dL Assessment and Plan (1) Perforated appendicitis Current Visit: Yes Status: Acute Code(s): K35.32 - AC APPENDICITIS W PERF, LOC PERITONITIS, & GANGR, W/O ABSCS SNOMED Code(s): 93453063 (2) Peritonitis Current Visit: Yes Status: Acute Code(s): K65.9 - PERITONITIS, UNSPECIFIED SNOMED Code(s): 57540303 (3) Allergy to sulfa drugs Current Visit: Yes Status: Acute Code(s): Z88.2 - ALLERGY STATUS TO SULFONAMIDES SNOMED Code(s): 00176427 (4) Leukocytosis Current Visit: Yes Status: Acute Code(s): D72.829 - ELEVATED WHITE BLOOD CELL COUNT, UNSPECIFIED SNOMED Code(s): 775330131 Plan: 1patient presented to hospital with sepsis in this patient who did have fever elevated white count source is acute perforated appendicitis and will need to cover for the enteric gram-negative both aerobes and anaerobes. 2sulfa allergy. 3Zosyn 3.375 g every 8 hours should provide adequate antibiotic coverage and will monitor clinical course closely. We will follow on clinical condition and cultures to further adjust medication i f needed Thank you for this consultation we will follow the patient along with you Dictation was produced using Thing[employer] dictation software. please excuse any grammatical, word or spelling errors. Time with Patient: Greater than 30
[2024-04-14] MEDS: LACTATED RINGERS 1,000 ML IV SCH (22:50)
[2024-04-15 00:49] LABS: Appearance,Urine Clear (Clear); Bilirubin,Urine Negative (Negative); Blood,Urine Negative (Negative); Color,Urine Yellow; Glucose,Urine (UA) Negative (Negative); Ketones,Urine Trace (Negative); Leukocyte Esterase,Urine Negative (Negative); Nitrite,Urine Negative (Negative); PH, Urine 5.5 (5.0-8.0); Protein,Urine Negative (Negative); Specific Gravity,Urine 1.028 (1.001-1.035); Urobilinogen,Urine <2.0 mg/dL (<2.0)
[2024-04-15] MEDS: HYDROcodone/APAP 5-325MG 1 EACH TAB PO PRN (08:25)
[2024-04-15 08:35] LABS: Basophils # (A) 0.04 X 10*3/uL (0.00-0.10); Basophils % (A) 0.5 %; Eosinophils # (A) 0.07 X 10*3/uL (0.04-0.35); Eosinophils % (A) 0.9 %; HCT 28.3 % (37.2-46.3); HGB 9.3 g/dL (12.0-15.0); Lymphocytes # (A) 1.21 X 10*3/uL (0.90-5.00); Lymphocytes % (A) 14.7 %; MCHC 32.9 g/dL (32.0-37.0); MCV 88.2 FL (80.0-97.0); Mean Platelet Volume 10.6 FL (9.5-12.2); Monocytes # (A) 0.53 X 10*3/uL (0.20-1.00); Monocytes % (A) 6.4 %; NRBC Per 100 WBC 0 X 10*3/uL (0.00-0.01); Neutrophils # (A) 6.34 X 10*3/uL (1.80-7.70); Platelet Count 139 X 10*3/uL (140-440); RBC 3.21 X 10*6/uL (4.10-5.20); RDW 12.8 % (11.5-14.5); WBC 8.23 X 10*3/uL (4.50-10.00)
[2024-04-15 08:49] LABS: ALT 10 U/L (8-44); AST 9 U/L (13-35); Albumin 2.8 g/dL (3.8-4.9); Albumin/Globulin Ratio 1.75 Ratio (1.60-3.17); Alkaline Phosphatase 63 U/L (41-126); BUN/Creat Ratio 14.25 Ratio (12.00-20.00); Blood Urea Nitrogen 11.4 mg/dL (9.0-27.0); Calcium 8.9 mg/dL (8.7-10.3); Carbon Dioxide 21.5 mmol/L (21.6-31.8); Chloride 107 mmol/L (96-109); Globulin 1.6 g/dL (1.6-3.3); Glucose 97 mg/dL (70-110); Sodium 135 mmol/L (135-145); Total Bilirubin 0.4 mg/dL (0.3-1.2); Total Protein 4.4 g/dL (6.2-8.2)
[2024-04-15] MEDS: ENOXAPARIN 40 MG/0.4 ML SYRINGE SQ SCH (09:36)
[2024-04-15] MEDS: SODIUM CHLORIDE 0.9% 1,000 ML IV ONE (09:41)
--- NOTE | 2024-04-15 11:14 | P.PN ---
Subjective Progress Note Date: 04/15/24 CHIEF COMPLAINT: Perforated appendicitis HISTORY OF PRESENT ILLNESS: Patient is postop day 1 status post laparoscopic appendectomy. Her pain is controlled. She did have a bowel movement last night. Patient reports her urine is dark. Her blood pressures have been low at 82/45. MARIANA drain 30 mL serosanguineous cloudy output. WBC is down from 19-8.23 Hgb 13 down to 9.3 PHYSICAL EXAM: VITAL SIGNS: Reviewed. GENERAL: Well-developed in no acute distress. ABDOMEN: Soft. Mildly distended. Tender at incision sites. Incision sites clean dry and intact NEUROLOGIC: Alert and oriented. Cranial nerves II through XII grossly intact. ASSESSMENT: 1. Perforated appendicitis status post laparoscopic appendectomy PLAN: -1 L fluid bolus ordered for hypotension -[facility] added for oral pain medication -Continue antibiotics -Encourage patient to ambulate -Encourage patient to use incentive spirometer -DVT prophylaxis Lovenox Physician Sterilizer Machine Operator note has been reviewed by physician. Signing provider agrees with the documented findings, assessment, and plan of care. Objective - Vital Signs Vital signs: Vital Signs Temp 98.3 F 04/15/24 07:27 Pulse 91 04/15/24 07:27 Resp 18 04/15/24 07:27 BP 82/45 04/15/24 07:27 Pulse Ox 92 L 04/15/24 07:27 FiO2 Intake & Output 04/14/24 04/15/24 04/15/24 18:59 06:59 18:59 Intake Total 1300 Output Total 40 830 Balance 1260 -830 Intake: IV 1300 Output: Drainage 40 30 Abdomen 40 30 Urine 800 Other: Voiding Method Toilet Toilet # Voids 1 2 # Bowel Movements 1 - Labs CBC & Chem 7: 04/15/24 05:23 04/15/24 05:23 Labs: Abnormal Lab Results - Last 24 Hours (Table) 04/15/24 04/15/24 04/15/24 Range/Units 00:15 05:23 05:23 RBC 3.21 L (4.10-5.20) X 10*6/uL Hgb 9.3 L (12.0-15.0) g/dL Hct 28.3 L (37.2-46.3) % Plt Count 139 L (140-440) X 10*3/uL Carbon Dioxide 21.5 L (21.6-31.8) mmol/L AST 9 L (13-35) U/L Total Protein 4.4 L (6.2-8.2) g/dL Albumin 2.8 L (3.8-4.9) g/dL Urine Ketones Trace H (Negative)
--- NOTE | 2024-04-15 14:41 | P.PN ---
Subjective Progress Note Date: 04/15/24 Hospital course: Patient is a very pleasant 59-year-old female with a past medical history of depression and mood disorder. She presented to the hospital on 04/14/2024 with a chief complaint of nausea, vomiting, and abdominal pain. Workup in the emergency department was completed. CT abdomen and pelvis was completed with findings consistent with acute appendicitis. Patient positive for sepsis upon arrival with blood pressure 91/63, heart rate 101, respiratory rate 16, temp elevating up to 100.7 F, and SpO2 of 97% on room air. Preoperative EKG was completed showing normal sinus rhythm at 75 bpm with no noted T wave or ST abnormalities showing no signs of acute ischemia upon personal review and interpretation. Laboratory analysis showing leukocytosis with WBC count of 19.4, hyponatremia with sodium of 134, and hypercalcemia with calcium of 10.6. Urinalysis was negative for infection. Influenza A, influenza B, and RSV were negative. Patient was admitted under general surgery team and we are consulted for medical management throughout hospitalization. Physical exam: Patient was seen and fully evaluated at bedside this morning. She is ambulatory in her room. She reports experiencing only mild postoperative pain. MARIANA drain in place with moderate serosanguineous fluid in collection chamber. Patient denies having any nausea, vomiting, or any other complaints at this time. She reports she is tolerating oral intake and has passed flatus and had a bowel movement this morning. Vital signs reviewed and stable. General: Nontoxic, no distress and appears stated age. Derm: Skin warm and dry, normal coloration for ethnicity. Head: Atraumatic, normocephalic and symmetric. Eyes: EOMs intact, no lid lag, and anicteric sclera Mouth: no lip lesions, mucus membranes moist Cardiovascular: regular rate and rhythm with normal S1S2, no murmur, positive posterior tibial pulses bilaterally, and cap refill < 2 seconds. Lungs: Respirations even, regular, and unlabored on room air. Lungs CTA bi laterally, no rhonchi, no rales, no wheezing, and no accessory muscle usage. Abdominal: soft, mild tenderness surrounding incision site. No guarding, no appreciable organomegaly. Dressing in place with mild shadowing. MARIANA drain in place. Ext: ROM intact. No gross muscle atrophy, no edema, no contractures Neuro: Speech clear, face symmetrical and CN II-XII grossly intact with no noted focal neuro deficits Psych: Alert and oriented to person, place, time, and situation. Appropriate and pleasant affect. Assessment and Plan of Care: Postoperative Hypotension Acute postoperative blood loss anemia and thrombocytopenia, greater than expected -Patient hypotensive this morning with blood pressure 82/45 and heart rate of 91. She does have acute postoperative blood loss anemia with preoperative hemoglobin of 13.7 and postoperative hemoglobin of 9.3. Will repeat hemoglobin this afternoon. Patient provided with a 1 L bolus of 0.9% normal saline and started on LR infusion at 125 cc/h. -Continued close monitoring of hemoglobin levels, will transfuse as needed for postoperative hemoglobin less than 8. -Continued close monitoring of vital signs for improvement. Appendicitis with perforation Leukocytosis Sepsis upon arrival, secondary to above -Continue IV antibiotics with Zosyn 3.375 g every 8 hours. -General surgery following, patient underwent laparoscopic appendectomy on 04/14/2024. -Wound/Dressing management, drain management, DVT prophylaxis, and pain management per primary admitting general surgery team. -Continue symptomatic care and pain management. -Follow-up on blood cultures. Depression with mood disorder Continue daily medication regimen with BuSpar 5 mg twice daily, Wellbutrin 300 mg nightly, and sertraline 100 mg nightly. Data reviewed: -Morning labs completed and reviewed. CBC showing resolution of leukocytosis from previous 19.4 down to 8.23 this morning and acute postoperative blood loss anemia with preoperative hemoglobin of 13.7 and postoperative hemoglobin of 9.3 and thrombocytopenia with platelet count of 139. -Vital signs reviewed. Blood pressure hypotensive this morning 82/45, heart rate 91, respiratory rate 18, temp 98.3 F, and SpO2 of 92% on room air. Thank you for allowing us to participate in the care of this pleasant patient. Do not hesitate to contact us with questions. Someone can be reached from the [facility] hospitalist group all hours of the day at [phone] or via Snapwiz serve. Patient was seen independently by Nurse Pracitioner. This document was prepared using LEAF[employer] dictation software. Please allow for errors in developmental training counselor, while rare they do occur. Objective - Vital Signs Vital signs: Vital Signs Temp 98.3 F 04/15/24 07:27 Pulse 91 04/15/24 07:27 Resp 18 04/15/24 07:27 BP 82/45 04/15/24 07:27 Pulse Ox 92 L 04/15/24 07:27 FiO2 Intake & Output 04/14/24 04/15/24 04/15/24 18:59 06:59 18:59 Intake Total 1300 Output Total 40 830 Balance 1260 -830 Intake: IV 1300 Output: Drainage 40 30 Abdomen 40 30 Urine 800 Other: Voiding Method Toilet Toilet # Voids 1 2 # Bowel Movements 1 - Labs CBC & Chem 7: 04/15/24 05:23 04/15/24 05:23 Labs: Abnormal Lab Results - Last 24 Hours (Table) 04/15/24 04/15/24 04/15/24 Range/Units 00:15 05:23 05:23 RBC 3.21 L (4.10-5.20) X 10*6/uL Hgb 9.3 L (12.0-15.0) g/dL Hct 28.3 L (37.2-46.3) % Plt Count 139 L (140-440) X 10*3/uL Carbon Dioxide 21.5 L (21.6-31.8) mmol/L AST 9 L (13-35) U/L Total Protein 4.4 L (6.2-8.2) g/dL Albumin 2.8 L (3.8-4.9) g/dL Urine Ketones Trace H (Negative)
[2024-04-15] MEDS: LACTATED RINGERS 1,000 ML IV SCH (15:00)
[2024-04-15 15:34] LABS: HCT 28.7 % (34.0-46.0); Hypochromasia Slight; MCH 29.8 pg (25.0-35.0); MCHC 32.9 g/dL (31.0-37.0); MCV 90.6 fL (80.0-100.0); Mean Platelet Volume 8.6; Platelet Count 135 k/uL (150-450); RBC 3.17 m/uL (3.80-5.40); RDW 12.9 % (11.5-15.5); WBC 9.2 k/uL (3.8-10.6)
[2024-04-15 16:03] LABS: HGB 9.5 gm/dL (11.4-16.0)
--- NOTE | 2024-04-15 16:17 | P.PN ---
Subjective Progress Note Date: 04/15/24 Principal diagnosis: Reason for follow-up is perforated appendicitis and peritonitis Patient is a 59-year-old female with past medical history significant depression presenting to the hospital for evaluation of abdominal pain patient has been diagnosed with perforated appendicitis status post laparoscopic appendectomy. On today's evaluation that is 04/15/2024, the patient continues to be afebrile, the patient is on room air and breathing comfortably, the Pt denies having any chest pain or cough, the patient abdominal pain has decreased intensity controlled with the pain medication no nausea vomiting no bowel movement. The patient white count is normalized to 8.23 and creatinine of 0.8 blood culture currently pending Objective - Vital Signs Vital signs: Vital Signs Temp 99 F 04/15/24 12:13 Pulse 93 04/15/24 12:13 Resp 18 04/15/24 12:13 BP 93/58 04/15/24 12:13 Pulse Ox 93 L 04/15/24 12:13 FiO2 Intake & Output 04/14/24 04/15/24 04/15/24 18:59 06:59 18:59 Intake Total 1300 Output Total 40 830 220 Balance 1260 -830 -220 Intake: IV 1300 Output: Drainage 40 30 20 Abdomen 40 30 20 Urine 800 200 Other: Voiding Method Toilet Toilet # Voids 1 2 # Bowel Movements 1 - Exam GENERAL DESCRIPTION: Middle-aged female lying in bed in no distress RESPIRATORY SYSTEM: Unlabored breathing , decreased breath sounds at bases HEART: S1 S2 regular rate and rhythm , ABDOMEN: Soft , mild tenderness EXTREMITIES: No edema feet - Labs CBC & Chem 7: 04/15/24 15:04 04/15/24 05:23 Labs: Abnormal Lab Results - Last 24 Hours (Table) 04/15/24 04/15/24 04/15/24 Range/Units 00:15 05:23 05:23 RBC 3.21 L (4.10-5.20) X 10*6/uL Hgb 9.3 L (12.0-15.0) g/dL Hct 28.3 L (37.2-46.3) % Plt Count 139 L (140-440) X 10*3/uL Carbon Dioxide 21.5 L (21.6-31.8) mmol/L AST 9 L (13-35) U/L Total Protein 4.4 L (6.2-8.2) g/dL Albumin 2.8 L (3.8-4.9) g/dL Urine Ketones Trace H (Negative) Microbiology - Last 24 Hours (Table) 04/14/24 01:00 Blood Culture - Preliminary Blood 04/14/24 00:45 Blood Culture - Preliminary Blood Assessment and Plan (1) Perforated appendicitis Current Visit: Yes Status: Acute Code(s): K35.32 - AC APPENDICITIS W PERF, LOC PERITONITIS, & GANGR, W/O ABSCS SNOMED Code(s): 96750933 (2) Peritonitis Current Visit: Yes Status: Acute Code(s): K65.9 - PERITONITIS, UNSPECIFIED SNOMED Code(s): 56788224 (3) Allergy to sulfa drugs Current Visit: Yes Status: Acute Code(s): Z88.2 - ALLERGY STATUS TO SULFONAMIDES SNOMED Code(s): 36140689 (4) Leukocytosis Current Visit: Yes Status: Acute Code(s): D72.829 - ELEVATED WHITE BLOOD CELL COUNT, UNSPECIFIED SNOMED Code(s): 433330201 Plan: 1patient presented to hospital with sepsis in this patient who did have fever elevated white count source is acute perforated appendicitis and will need to cover for the enteric gram-negative both aerobes and anaerobes. 2patient is afebrile and the patient white count has normalized 3patient to continue with Zosyn 3.375 g every 8 hours while inpatient will transition to oral antibiotic on discharge Dictation was produced using MynewMD dictation software. please excuse any grammatical, word or spelling errors. Time with Patient: Less than 30
[2024-04-15] MEDS: buPROPion XL 300 MG TAB.ER.24H PO SCH (20:15)
[2024-04-15] MEDS: busPIRone HCl 5 MG TAB PO SCH (20:15)
[2024-04-15] MEDS: SERTRALINE 100 MG TAB PO SCH (20:15)
[2024-04-16] MEDS: ACETAMINOPHEN TAB 325 MG TAB PO PRN (05:02)
[2024-04-16 08:32] LABS: Basophils # (A) 0.02 X 10*3/uL (0.00-0.10); Basophils % (A) 0.3 %; Eosinophils % (A) 1.3 %; HCT 27.8 % (37.2-46.3); HGB 9.2 g/dL (12.0-15.0); Lymphocytes # (A) 0.83 X 10*3/uL (0.90-5.00); MCH 28.7 pg (27.0-32.0); MCHC 33.1 g/dL (32.0-37.0); MCV 86.6 FL (80.0-97.0); Mean Platelet Volume 10.7 FL (9.5-12.2); NRBC Per 100 WBC 0 X 10*3/uL (0.00-0.01); Neutrophils # (A) 5.94 X 10*3/uL (1.80-7.70); Neutrophils % (A) 78.7 %; Platelet Count 132 X 10*3/uL (140-440); RBC 3.21 X 10*6/uL (4.10-5.20); RDW 12.9 % (11.5-14.5); WBC 7.54 X 10*3/uL (4.50-10.00)
[2024-04-16 09:04] LABS: Magnesium 1.6 mg/dL (1.5-2.4)
[2024-04-16 09:34] LABS: ALT 21 U/L (8-44); AST 17 U/L (13-35); Albumin 2.7 g/dL (3.8-4.9); Albumin/Globulin Ratio 1.69 Ratio (1.60-3.17); Alkaline Phosphatase 105 U/L (41-126); Blood Urea Nitrogen 6.6 mg/dL (9.0-27.0); Calcium 8.6 mg/dL (8.7-10.3); Carbon Dioxide 21.3 mmol/L (21.6-31.8); Chloride 110 mmol/L (96-109); Globulin 1.6 g/dL (1.6-3.3); Glucose 112 mg/dL (70-110); Potassium 3.6 mmol/L (3.5-5.5); Sodium 139 mmol/L (135-145); Total Bilirubin 0.3 mg/dL (0.3-1.2); Total Protein 4.3 g/dL (6.2-8.2)
--- NOTE | 2024-04-16 09:51 | CDI ---
Documentation Clarification Form Date: 04/16/2024 09:14:26 AM From: Poly Bryant RN,CCDS Phone: [phone] Admit Date: 04/14/2024 09:46:00 AM Patient Name: Adali Ortega Visit Number: [id number] Discharge Date: ATTENTION: The Clinical Documentation Specialists (CDI) and [facility] Coding Staff appreciate your assistance in clarifying documentation. Please respond to the clarification below the line at the bottom and electronically sign. The CDI & [facility] Coding staff will review the response and follow-up if needed. Please note: Queries are made part of the Legal Health Record. If you have any questions, please contact the author of this message via ITS. Carter LOUIS Postoperative Hypotension is documented in the progress note on 04/15/24 and patient had Laparoscopic appendectomy on 04/14/24. Additional clarification is requested regarding the relationship, if any, that exists between the diagnosis and the procedure. Patients Admitting Diagnosis: Acute appendicitis Post-Operative Diagnosis: Perforated appendicitis Procedure performed: Laparoscopic appendectomy History/Risk Factors: Depression Clinical Indicators: 59-year-old female complaining of abdominal pain nausea and vomiting and has had poor oral intake. She was ruled in for acute appendicitis per CT scan of abdomen/pelvis. 04/13VS: 91/63 101 16 99.3 97% 04/14 VS (07:29)90/46 85 18 100.7 95% RA 04/13 Labs: WBC 19.4, Neutrophils 17, Na 134, 04/14 ID: patient presented to hospital with sepsis in this patient who did have fever elevated white count source is acute perforated appendicitis and will need to cover for the enteric gram-negative both aerobes and anaerobes. 04/14 IM progress note: Sepsis upon arrival, Appendicitis with perforation, Leukocytosis Treatment: Zosyn 3.375 GM IVPB Q8 HRS .9 NS 1,000 ML Bolus X2 then 130 HR .9NS 1,000 ML Bolus 04/15 What relationship, if any, exists between the diagnosis of postoperative hypotension and the procedure: [ ]Postoperative hypotension is a complication of surgical procedure [ ] Postoperative hypotension is an expected outcome of the surgical procedure [ ] Postoperative hypotension is related to patients co-morbid condition(s) of [insert co-morbid dxs] & not a complication of the procedure [ X ] Other please specify Postoperative Hypotension, likely secondary to hypovolemia due to acute post operative blood loss anemia. [ ] Unable to determine (Template Last Revised: November 2020) MTDD
--- NOTE | 2024-04-16 13:52 | P.PN ---
Subjective Progress Note Date: 04/16/24 CHIEF COMPLAINT: Perforated appendicitis HISTORY OF PRESENT ILLNESS: Patient is postop day #1 status post laparoscopic appendectomy. Patient accidentally partially pulled out her MARIANA drain. It is draining around the MARIANA drain serosanguineous drainage. Patient reports her pain is controlled. She did have 2 episodes of diarrhea. She denies any nausea or vomiting. Afebrile. Patient did receive IV fluid bolus for hypotension yesterday. Blood pressure did show some improvement. But again earlier this morning BP was 97/63. Her maintenance IV fluids had been off these have been restarted. WBC 7.54 Hgb 9.2 platelets 132 PHYSICAL EXAM: VITAL SIGNS: Reviewed. GENERAL: Well-developed in no acute distress. ABDOMEN: Soft. Nondistended. Mild tenderness right lower quadrant. Keep a log of MARIANA drain output and bring with you to your follow-up appointment Milk/strip drains 2-3 times a day about 6 inches out. There is drainage around the MARIANA drain site NEUROLOGIC: Alert and oriented. Cranial nerves II through XII grossly intact. ASSESSMENT: 1. Perforated appendicitis status post laparoscopic appendectomy PLAN: -Remove MARIANA drain -Continue antibiotics per ID service -Continue pain medication -Encourage patient to ambulate -Continue maintenance IV fluids -Continue regular diet -Encourage patient to use incentive spirometer -DVT prophylaxis Lovenox Physician Portfolio Administrator note has been reviewed by physician. Signing provider agrees with the documented findings, assessment, and plan of care. Objective - Vital Signs Vital signs: Vital Signs Temp 98.3 F 04/16/24 06:54 Pulse 81 04/16/24 06:54 Resp 18 04/16/24 06:54 BP 97/63 04/16/24 06:54 Pulse Ox 93 L 04/16/24 06:54 FiO2 Intake & Output 04/15/24 04/16/24 04/16/24 18:59 06:59 18:59 Output Total 220 520 0 Balance -220 -520 0 Output: Drainage 20 120 0 Abdomen 20 120 0 Urine 200 400 Other: Voiding Method Toilet Toilet Toilet # Voids 4 1 # Bowel Movements 1 - Labs CBC & Chem 7: 04/16/24 04:52 04/16/24 04:52 Labs: Abnormal Lab Results - Last 24 Hours (Table) 07/23/24 07/24/24 07/24/24 Range/Units 15:04 04:52 04:52 RBC 3.17 L 3.21 L (3.80-5.40) m/uL Hgb 9.5 L D 9.2 L (11.4-16.0) gm/dL Hct 28.7 L 27.8 L (34.0-46.0) % Plt Count 135 L 132 L (150-450) k/uL Immature Gran # 0.05 H (0.00-0.04) X 10*3/uL Lymphocytes # 0.83 L (0.90-5.00) X 10*3/uL Chloride 110 H (96-109) mmol/L Carbon Dioxide 21.3 L (21.6-31.8) mmol/L BUN 6.6 L (9.0-27.0) mg/dL BUN/Creatinine Ratio 11.00 L (12.00-20.00) Ratio Glucose 112 H (70-110) mg/dL Calcium 8.6 L (8.7-10.3) mg/dL Total Protein 4.3 L (6.2-8.2) g/dL Albumin 2.7 L (3.8-4.9) g/dL Microbiology - Last 24 Hours (Table) 04/14/24 01:00 Blood Culture - Preliminary Blood 04/14/24 00:45 Blood Culture - Preliminary Blood
--- NOTE | 2024-04-16 16:42 | P.PN ---
Subjective Progress Note Date: 04/16/24 Hospital course: Patient is a very pleasant 59-year-old female with a past medical history of depression and mood disorder. She presented to the hospital on 04/14/2024 with a chief complaint of nausea, vomiting, and abdominal pain. Workup in the emergency department was completed. CT abdomen and pelvis was completed with findings consistent with acute appendicitis. Patient positive for sepsis upon arrival with blood pressure 91/63, heart rate 101, respiratory rate 16, temp elevating up to 100.7 F, and SpO2 of 97% on room air. Preoperative EKG was completed showing normal sinus rhythm at 75 bpm with no noted T wave or ST abnormalities showing no signs of acute ischemia upon personal review and interpretation. Laboratory analysis showing leukocytosis with WBC count of 19.4, hyponatremia with sodium of 134, and hypercalcemia with calcium of 10.6. Urinalysis was negative for infection. Influenza A, influenza B, and RSV were negative. Patient was admitted under general surgery team and we are consulted for medical management throughout hospitalization. Physical exam: Patient was seen and fully evaluated at bedside this morning. She is ambulatory in her room and again reports only mild postoperative pain/discomfort. She continues to deny having any nausea, vomiting, or any other complaints at this time. Vital signs reviewed and stable. General: Nontoxic, no distress and appears stated age. Derm: Skin warm and dry, normal coloration for ethnicity. Head: Atraumatic, normocephalic and symmetric. Eyes: EOMs intact, no lid lag, and anicteric sclera Mouth: no lip lesions, mucus membranes moist Cardiovascular: regular rate and rhythm with normal S1S2, no murmur, positive posterior tibial pulses bilaterally, and cap refill < 2 seconds. Lungs: Respirations even, regular, and unlabored on room air. Lungs CTA bilaterally, no rhonchi, no rales, no wheezing, and no accessory muscle usage. Abdominal: soft, mild tenderness surrounding incision site. No guarding, no appreciable organomegaly. Dressing in place with mild shadowing. MARIANA drain in place. Ext: ROM intact. No gross muscle atrophy, no edema, no contractures Neuro: Speech clear, face symmetrical and CN II-XII grossly intact with no noted focal neuro deficits Psych: Alert and oriented to person, place, time, and situation. Appropriate and pleasant affect. Assessment and Plan of Care: Postoperative Hypotension, likely secondary to hypovolemia due to acute post operative blood loss anemia Acute postoperative blood loss anemia and thrombocytopenia, greater than expected -Postoperative hypotension has improved. Blood pressures remain soft but improved from previous 82/45 with heart rate of 91 up to 97/63 with heart rate of 81 this morning. -Hemoglobin levels were trended overnight and is stable at 9.3, 9.5, and 9.2. Preoperative hemoglobin was 13.7. Patient was no signs of active bleeding and stable hemoglobins. We will continue to monitor with repeat morning CBC and transfuse if needed for hemoglobin less than 7. -Continued close monitoring of vital signs. Appendicitis with perforation Leukocytosis, resolved Sepsis upon arrival, secondary to above -Continue IV antibiotics with Zosyn 3.375 g every 8 hours. -General surgery following, patient underwent laparoscopic appendectomy on 04/14/2024. -Wound/Dressing management, drain management, DVT prophylaxis, and pain management per primary admitting general surgery team. -Continue symptomatic care and pain management. -Blood cultures showing no growth to date Depression with mood disorder Continue daily medication regimen with BuSpar 5 mg twice daily, Wellbutrin 300 mg nightly, and sertraline 100 mg nightly. Data reviewed: -Hemoglobin levels were trended and stable at 9.3, 9.5, and 9.2. Preoperative hemoglobin was 13.7. -Morning labs completed and reviewed. CBC showing bicytopenia with hemoglobin of 9.2 and platelet count of 132. BMP showing mild hyperchloremia with chloride of 110 and hypocarbia with bicarb of 21.3 -Vital signs reviewed. Blood pressure 97/63, heart rate 81, respiratory rate 18, temp 98.3 F, and SpO2 of 93% on room air. Thank you for allowing us to participate in the care of this pleasant patient. Do not hesitate to contact us with questions. Someone can be reached from the [facility] hospitalist group all hours of the day at [phone] or via [employer] serve. Patient was seen independently by Nurse Pracitioner. This document was prepared using [employer] dictation software. Please allow for errors in employment evaluator/case manager, while rare they do occur. Objective - Vital Signs Vital signs: Vital Signs Temp 98.3 F 04/16/24 06:54 Pulse 81 04/16/24 06:54 Resp 18 04/16/24 06:54 BP 97/63 04/16/24 06:54 Pulse Ox 93 L 04/16/24 06:54 FiO2 Intake & Output 04/15/24 04/16/24 04/16/24 18:59 06:59 18:59 Output Total 220 520 Balance -220 -520 Output: Drainage 20 120 Abdomen 20 120 Urine 200 400 Other: Voiding Method Toilet Toilet # Voids 4 1 # Bowel Movements 1 - Labs CBC & Chem 7: 04/16/24 04:52 04/16/24 04:52 Labs: Abnormal Lab Results - Last 24 Hours (Table) 04/15/24 04/15/24 04/16/24 Range/Units 05:23 15:04 04:52 RBC 3.17 L 3.21 L (3.80-5.40) m/uL Hgb 9.5 L D 9.2 L (11.4-16.0) gm/dL Hct 28.7 L 27.8 L (34.0-46.0) % Plt Count 135 L 132 L (150-450) k/uL Immature Gran # 0.05 H (0.00-0.04) X 10*3/uL Lymphocytes # 0.83 L (0.90-5.00) X 10*3/uL Carbon Dioxide 21.5 L (21.6-31.8) mmol/L AST 9 L (13-35) U/L Total Protein 4.4 L (6.2-8.2) g/dL Albumin 2.8 L (3.8-4.9) g/dL Microbiology - Last 24 Hours (Table) 04/14/24 01:00 Blood Culture - Preliminary Blood 04/14/24 00:45 Blood Culture - Preliminary Blood
[2024-04-16] MEDS: MAGNESIUM SULFATE-D5W PMX 1 GM in DEXTROSE/WATER 1 100ML.BAG IVPB SCH (17:37)
[2024-04-17] MEDS: ONDANSETRON 4 MG/2 ML VIAL IVP PRN (06:32)
[2024-04-17 08:39] LABS: HCT 27.7 % (37.2-46.3); HGB 8.8 g/dL (12.0-15.0); MCH 28.2 pg (27.0-32.0); MCHC 31.8 g/dL (32.0-37.0); MCV 88.8 FL (80.0-97.0); Mean Platelet Volume 10.8 FL (9.5-12.2); NRBC Per 100 WBC 0 X 10*3/uL (0.00-0.01); Platelet Count 157 X 10*3/uL (140-440); RBC 3.12 X 10*6/uL (4.10-5.20); RDW 13.1 % (11.5-14.5); WBC 5.85 X 10*3/uL (4.50-10.00)
[2024-04-17 09:07] LABS: Blood Urea Nitrogen 4.2 mg/dL (9.0-27.0); Carbon Dioxide 23.4 mmol/L (21.6-31.8); Chloride 109 mmol/L (96-109); Glucose 90 mg/dL (70-110); Magnesium 2.1 mg/dL (1.5-2.4); Potassium 3.5 mmol/L (3.5-5.5); Sodium 140 mmol/L (135-145)
[2024-04-17 09:08] LABS: ALT 19 U/L (8-44); AST 13 U/L (13-35); Albumin 2.6 g/dL (3.8-4.9); Albumin/Globulin Ratio 1.44 Ratio (1.60-3.17); Alkaline Phosphatase 107 U/L (41-126); Calcium 8.8 mg/dL (8.7-10.3); Globulin 1.8 g/dL (1.6-3.3); Total Bilirubin 0.2 mg/dL (0.3-1.2); Total Protein 4.4 g/dL (6.2-8.2)
[2024-04-17] MEDS ORDERED: PROCHLORPERAZINE INJ 10 MG/2 ML VIAL IVP PRN (11:41)
--- NOTE | 2024-04-17 11:48 | P.PN ---
Subjective Progress Note Date: 04/17/24 Hospital course: Patient is a very pleasant 59-year-old female with a past medical history of depression and mood disorder. She presented to the hospital on 04/14/2024 with a chief complaint of nausea, vomiting, and abdominal pain. Workup in the emergency department was completed. CT abdomen and pelvis was completed with findings consistent with acute appendicitis. Patient positive for sepsis upon arrival with blood pressure 91/63, heart rate 101, respiratory rate 16, temp elevating up to 100.7 F, and SpO2 of 97% on room air. Preoperative EKG was completed showing normal sinus rhythm at 75 bpm with no noted T wave or ST abnormalities showing no signs of acute ischemia upon personal review and interpretation. Laboratory analysis showing leukocytosis with WBC count of 19.4, hyponatremia with sodium of 134, and hypercalcemia with calcium of 10.6. Urinalysis was negative for infection. Influenza A, influenza B, and RSV were negative. Patient was admitted under general surgery team and we are consulted for medical management throughout hospitalization. Physical exam: Patient was seen and fully evaluated at bedside this morning. She is ambulatory in her room and reports feeling unwell this morning. Patient reports having moderate nausea and abdominal distention. She denies episodes of vomiting and does report having normal bowel function. MARIAAN drain was removed on 04/16/2024. Vital signs reviewed and stable. General: Nontoxic, no distress and appears stated age. Derm: Skin warm and dry, normal coloration for ethnicity. Head: Atraumatic, normocephalic and symmetric. Eyes: EOMs intact, no lid lag, and anicteric sclera Mouth: no lip lesions, mucus membranes moist Cardiovascular: regular rate and rhythm with normal S1S2, no murmur, positive posterior tibial pulses bilaterally, and cap refill < 2 seconds. Lungs: Respirations even, regular, and unlabored on room air. Lungs CTA bi laterally, no rhonchi, no rales, no wheezing, and no accessory muscle usage. Abdominal: soft and slightly distended, mild tenderness surrounding incision site. No guarding, no appreciable organomegaly. Dressing in place. Ext: ROM intact. No gross muscle atrophy, no edema, no contractures Neuro: Speech clear, face symmetrical and CN II-XII grossly intact with no noted focal neuro deficits Psych: Alert and oriented to person, place, time, and situation. Appropriate and pleasant affect. Assessment and Plan of Care: Acute postoperative blood loss anemia and thrombocytopenia, greater than expected -Preoperative hemoglobin was 13.7 currently 8.8. Patient was no signs of active bleeding and stable hemoglobins therefore no need for further intervention at this time. We will continue to monitor with repeat morning CBC and transfuse if needed for hemoglobin less than 7. Postoperative Hypotension, likely secondary to hypovolemia due to acute post operative blood loss anemia. Resolved -Postoperative hypotension has resolved. Blood pressure currently 121/74, heart rate 71, respiratory rate 17, temp 98.7 F, and SpO2 of 93% on room air. -Continued close monitoring of vital signs. Thrombocytopenia, resolved Appendicitis with perforation Leukocytosis, resolved Sepsis upon arrival, secondary to above -Continue IV antibiotics with Zosyn 3.375 g every 8 hours. -General surgery following, patient underwent laparoscopic appendectomy on 04/14/2024. -Wound/Dressing management, drain management, DVT prophylaxis, and pain management per primary admitting general surgery team. MARIANA drain was removed . -Continue symptomatic care and pain management. -Blood cultures showing no growth to date. -Continue to encourage use of incentive spirometry 10-15 times hourly while awake. Depression with mood disorder Continue daily medication regimen with BuSpar 5 mg twice daily, Wellbutrin 300 mg nightly, and sertraline 100 mg nightly. Data reviewed: -Morning labs completed and reviewed. CBC showing stable acute blood loss anemia with hemoglobin 8.8. BMP unremarkable. Magnesium 2.1. Liver profile unremarkable with exception of hypoalbuminemia with albumin of 2.6. -Vital signs reviewed. Blood pressure currently 121/74, heart rate 71, respiratory rate 17, temp 98.7 F, and SpO2 of 93% on room air. Thank you for allowing us to participate in the care of this pleasant patient. Do not hesitate to contact us with questions. Someone can be reached from the [facility] hospitalist group all hours of the day at [phone] or via [employer] serve. Patient was seen independently by Nurse Pracitioner. This document was prepared using [employer] dictation software. Please allow for errors in foundry technician, while rare they do occur. Objective - Vital Signs Vital signs: Vital Signs Temp 98.5 F 04/17/24 01:40 Pulse 85 04/17/24 01:40 Resp 18 04/17/24 01:40 BP 103/68 07/25/24 01:40 Pulse Ox 91 L 04/17/24 01:40 FiO2 Intake & Output 04/16/24 04/17/24 04/17/24 18:59 06:59 18:59 Output Total 0 Balance 0 Output: Drainage 0 Abdomen 0 Other: Voiding Method Toilet Toilet # Voids 3 1 - Labs CBC & Chem 7: 04/17/24 05:55 04/17/24 05:55 Labs: Abnormal Lab Results - Last 24 Hours (Table) 04/16/24 04/16/24 Range/Units 04:52 04:52 RBC 3.21 L (4.10-5.20) X 10*6/uL Hgb 9.2 L (12.0-15.0) g/dL Hct 27.8 L (37.2-46.3) % Plt Count 132 L (140-440) X 10*3/uL Immature Gran # 0.05 H (0.00-0.04) X 10*3/uL Lymphocytes # 0.83 L (0.90-5.00) X 10*3/uL Chloride 110 H (96-109) mmol/L Carbon Dioxide 21.3 L (21.6-31.8) mmol/L BUN 6.6 L (9.0-27.0) mg/dL BUN/Creatinine Ratio 11.00 L (12.00-20.00) Ratio Glucose 112 H (70-110) mg/dL Calcium 8.6 L (8.7-10.3) mg/dL Total Protein 4.3 L (6.2-8.2) g/dL Albumin 2.7 L (3.8-4.9) g/dL Microbiology - Last 24 Hours (Table) 04/14/24 01:00 Blood Culture - Preliminary Blood 04/14/24 00:45 Blood Culture - Preliminary Blood
--- NOTE | 2024-04-17 13:11 | P.PN ---
Subjective Progress Note Date: 04/17/24 CHIEF COMPLAINT: Perforated appendicitis HISTORY OF PRESENT ILLNESS: Patient is postop day #2 status post laparoscopic appendectomy. Patient's MARIANA drain completely removed yesterday after she accidentally pulled part way out. She does have serous drainage from the old MARIANA drain site. Patient does report abdominal pain. Her pain is controlled. She did have bowel movements and flatus. Denies any nausea or vomiting. She has been up and ambulating. Afebrile. Blood pressures improved. WBC 5.85 Hgb 8.8 PHYSICAL EXAM: VITAL SIGNS: Reviewed. GENERAL: Well-developed in no acute distress. ABDOMEN: Soft. Nondistended. Mild tenderness right lower quadrant. Mid abdomen old MARIANA drain site with serous drainage NEUROLOGIC: Alert and oriented. Cranial nerves II through XII grossly intact. ASSESSMENT: 1. Perforated appendicitis status post laparoscopic appendectomy PLAN: -Continue antibiotics per ID service -Continue pain medication -Encourage patient to ambulate -Discontinue IV fluids -Continue regular diet -Encourage patient to use incentive spirometer -DVT prophylaxis Lovenox [facility] Rn note has been reviewed by physician. Signing provider agrees with the documented findings, assessment, and plan of care. Objective - Vital Signs Vital signs: Vital Signs Temp 98.7 F 04/17/24 06:58 Pulse 71 04/17/24 08:00 Resp 17 04/17/24 06:58 BP 121/74 04/17/24 06:58 Pulse Ox 93 L 04/17/24 06:58 FiO2 Intake & Output 04/16/24 04/17/24 04/17/24 18:59 06:59 18:59 Output Total 0 Balance 0 Output: Drainage 0 Abdomen 0 Other: Voiding Method Toilet Toilet Toilet # Voids 3 1 - Labs CBC & Chem 7: 04/17/24 05:55 04/17/24 05:55 Labs: Abnormal Lab Results - Last 24 Hours (Table) 04/17/24 04/17/24 Range/Units 05:55 05:55 RBC 3.12 L (4.10-5.20) X 10*6/uL Hgb 8.8 L (12.0-15.0) g/dL Hct 27.7 L (37.2-46.3) % MCHC 31.8 L (32.0-37.0) g/dL BUN 4.2 L (9.0-27.0) mg/dL BUN/Creatinine Ratio 7.00 L (12.00-20.00) Ratio Total Bilirubin 0.2 L (0.3-1.2) mg/dL Total Protein 4.4 L (6.2-8.2) g/dL Albumin 2.6 L (3.8-4.9) g/dL Albumin/Globulin Ratio 1.44 L (1.60-3.17) Ratio Microbiology - Last 24 Hours (Table) 04/14/24 01:00 Blood Culture - Preliminary Blood 04/14/24 00:45 Blood Culture - Preliminary Blood
--- NOTE | 2024-04-17 15:45 | P.PN ---
Subjective Progress Note Date: 04/16/24 Principal diagnosis: Reason for follow-up is perforated appendicitis and peritonitis Patient is a 59-year-old female with past medical history significant depression presenting to the hospital for evaluation of abdominal pain patient has been diagnosed with perforated appendicitis status post laparoscopic appendectomy. On today's evaluation that is 04/16/2024, Patient is afebrile patient is currently on room air and denies having any shortness of breath, the patient denies any chest pain or cough, the patient denies any nausea vomiting abdominal pain has decreased in intensity did have a bowel movement. Patient white count is 7.54, creatinine 0.6 blood cultures are pending Objective - Vital Signs Vital signs: Vital Signs Temp 98.2 F 04/16/24 13:55 Pulse 78 04/16/24 13:55 Resp 18 04/16/24 13:55 BP 97/64 04/16/24 13:55 Pulse Ox 94 L 04/16/24 13:55 FiO2 - Exam GENERAL DESCRIPTION: Middle-aged female lying in bed in no distress RESPIRATORY SYSTEM: Unlabored breathing , decreased breath sounds at bases HEART: S1 S2 regular rate and rhythm , ABDOMEN: Soft , mild tenderness EXTREMITIES: No edema feet - Labs CBC & Chem 7: 04/17/24 05:55 04/17/24 05:55 Labs: Abnormal Lab Results - Last 24 Hours (Table) 04/17/24 04/17/24 Range/Units 05:55 05:55 RBC 3.12 L (4.10-5.20) X 10*6/uL Hgb 8.8 L (12.0-15.0) g/dL Hct 27.7 L (37.2-46.3) % MCHC 31.8 L (32.0-37.0) g/dL BUN 4.2 L (9.0-27.0) mg/dL BUN/Creatinine Ratio 7.00 L (12.00-20.00) Ratio Total Bilirubin 0.2 L (0.3-1.2) mg/dL Total Protein 4.4 L (6.2-8.2) g/dL Albumin 2.6 L (3.8-4.9) g/dL Albumin/Globulin Ratio 1.44 L (1.60-3.17) Ratio Microbiology - Last 24 Hours (Table) 04/14/24 01:00 Blood Culture - Preliminary Blood 04/14/24 00:45 Blood Culture - Preliminary Blood Assessment and Plan (1) Perforated appendicitis Current Visit: Yes Status: Acute Code(s): K35.32 - AC APPENDICITIS W PERF, LOC PERITONITIS, & GANGR, W/O ABSCS SNOMED Code(s): 70269084 (2) Peritonitis Current Visit: Yes Status: Acute Code(s): K65.9 - PERITONITIS, UNSPECIFIED SNOMED Code(s): 41756110 (3) Allergy to sulfa drugs Current Visit: Yes Status: Acute Code(s): Z88.2 - ALLERGY STATUS TO SULFONAMIDES SNOMED Code(s): 09854404 (4) Leukocytosis Current Visit: Yes Status: Acute Code(s): D72.829 - ELEVATED WHITE BLOOD CELL COUNT, UNSPECIFIED SNOMED Code(s): 759944465 Plan: 1patient presented to hospital with sepsis in this patient who did have fever elevated white count source is acute perforated appendicitis and will need to cover for the enteric gram-negative both aerobes and anaerobes. 2patient is afebrile and the patient white count has normalized, blood culture currently pending 3patient did have some clinical improvement to continue with Zosyn 3.375 g every 8 hours while inpatient and monitor clinical course closely Dictation was produced using [email or web address] dictation software. please excuse any grammatical, word or spelling errors. Time with Patient: Less than 30
--- NOTE | 2024-04-17 15:46 | P.PN ---
Subjective Progress Note Date: 04/17/24 Principal diagnosis: Reason for follow-up is perforated appendicitis and peritonitis Patient is a 59-year-old female with past medical history significant depression presenting to the hospital for evaluation of abdominal pain patient has been diagnosed with perforated appendicitis status post laparoscopic appendectomy. On today's evaluation that is 04/17/2024, patient has been afebrile, patient is breathing comfortably and is currently on room air, patient denies having any significant cough no chest pain shortness of breath, patient mention not feeling that good today complaining of some abdominal discomfort and nausea but no vomiting did have a bowel movement. The patient white count is 5.85 creatinine 0.6 Objective - Vital Signs Vital signs: Vital Signs Temp 98.7 F 04/17/24 06:58 Pulse 71 04/17/24 08:00 Resp 17 04/17/24 06:58 BP 121/74 04/17/24 06:58 Pulse Ox 93 L 04/17/24 06:58 FiO2 Intake & Output 04/16/24 04/17/24 04/17/24 18:59 06:59 18:59 Output Total 0 Balance 0 Output: Drainage 0 Abdomen 0 Other: Voiding Method Toilet Toilet Toilet # Voids 3 1 - Exam GENERAL DESCRIPTION: Middle-aged female lying in bed in no distress RESPIRATORY SYSTEM: Unlabored breathing , decreased breath sounds at bases HEART: S1 S2 regular rate and rhythm , ABDOMEN: Soft , mild tenderness EXTREMITIES: No edema feet - Labs CBC & Chem 7: 04/17/24 05:55 04/17/24 05:55 Labs: Abnormal Lab Results - Last 24 Hours (Table) 04/17/24 04/17/24 Range/Units 05:55 05:55 RBC 3.12 L (4.10-5.20) X 10*6/uL Hgb 8.8 L (12.0-15.0) g/dL Hct 27.7 L (37.2-46.3) % MCHC 31.8 L (32.0-37.0) g/dL BUN 4.2 L (9.0-27.0) mg/dL BUN/Creatinine Ratio 7.00 L (12.00-20.00) Ratio Total Bilirubin 0.2 L (0.3-1.2) mg/dL Total Protein 4.4 L (6.2-8.2) g/dL Albumin 2.6 L (3.8-4.9) g/dL Albumin/Globulin Ratio 1.44 L (1.60-3.17) Ratio Microbiology - Last 24 Hours (Table) 04/14/24 01:00 Blood Culture - Preliminary Blood 04/14/24 00:45 Blood Culture - Preliminary Blood Assessment and Plan (1) Perforated appendicitis Current Visit: Yes Status: Acute Code(s): K35.32 - AC APPENDICITIS W PERF, LOC PERITONITIS, & GANGR, W/O ABSCS SNOMED Code(s): 62444974 (2) Peritonitis Current Visit: Yes Status: Acute Code(s): K65.9 - PERITONITIS, UNSPECIFIED SNOMED Code(s): 99471663 (3) Allergy to sulfa drugs Current Visit: Yes Status: Acute Code(s): Z88.2 - ALLERGY STATUS TO SULFONAMIDES SNOMED Code(s): 28217808 (4) Leukocytosis Current Visit: Yes Status: Acute Code(s): D72.829 - ELEVATED WHITE BLOOD CELL COUNT, UNSPECIFIED SNOMED Code(s): 435726335 Plan: 1patient presented to hospital with sepsis in this patient who did have fever elevated white count source is acute perforated appendicitis and will need to cover for the enteric gram-negative both aerobes and anaerobes. 2patient is afebrile and the patient white count has normalized, blood culture currently pending 3patient to continue with the current regiment of Zosyn 3.375 g every 8 hours while waiting for improvement her symptoms and will transition to oral antibiotics on discharge Dictation was produced using [employer] dictation software. please excuse any grammatical, word or spelling errors. Time with Patient: Less than 30
[2024-04-18 08:32] VITALS: RESP 16
[2024-04-18 10:26] LABS: ALT 21 U/L (8-44); AST 11 U/L (13-35); Alkaline Phosphatase 106 U/L (41-126); BUN/Creat Ratio 7.17 Ratio (12.00-20.00); Blood Urea Nitrogen 4.3 mg/dL (9.0-27.0); Calcium 9.3 mg/dL (8.7-10.3); Chloride 107 mmol/L (96-109); Glucose 108 mg/dL (70-110); Magnesium 1.9 mg/dL (1.5-2.4); Potassium 3.6 mmol/L (3.5-5.5); Sodium 141 mmol/L (135-145); Total Bilirubin <0.2 mg/dL (0.3-1.2)
[2024-04-18 10:47] LABS: HCT 29.8 % (37.2-46.3); HGB 9.7 g/dL (12.0-15.0); MCH 28.6 pg (27.0-32.0); MCHC 32.6 g/dL (32.0-37.0); MCV 87.9 FL (80.0-97.0); Mean Platelet Volume 10.6 FL (9.5-12.2); NRBC Per 100 WBC 0 X 10*3/uL (0.00-0.01); Platelet Count 231 X 10*3/uL (140-440); RBC 3.39 X 10*6/uL (4.10-5.20)
--- NOTE | 2024-04-18 13:32 | P.PN ---
Subjective Progress Note Date: 04/18/24 Principal diagnosis: I reviewed the documentation as provided by the CHARAN above, who is the original author of this note. I agree with the documented assessment and plan, with the following changes: none Hospital course: Patient is a very pleasant 59-year-old female with a past medical history of depression and mood disorder. She presented to the hospital on 04/14/2024 with a chief complaint of nausea, vomiting, and abdominal pain. Workup in the emergency department was completed. CT abdomen and pelvis was completed with findings consistent with acute appendicitis. Patient positive for sepsis upon arrival with blood pressure 91/63, heart rate 101, respiratory rate 16, temp elevating up to 100.7 F, and SpO2 of 97% on room air. Preoperative EKG was completed showing normal sinus rhythm at 75 bpm with no noted T wave or ST abnormalities showing no signs of acute ischemia upon personal review and interpretation. Laboratory analysis showing leukocytosis with WBC count of 19.4, hyponatremia with sodium of 134, and hypercalcemia with calcium of 10.6. Urinalysis was negative for infection. Influenza A, influenza B, and RSV were negative. Patient was admitted under general surgery team and we are consulted for medical management throughout hospitalization. Physical exam: Patient was seen and fully evaluated at bedside this morning. She was resting in bed at time of assessment and appears to be doing well. Patient is postoperative day 4 and is tolerating a regular diet. She denies having any further episodes of nausea or vomiting. Patient reports normal bowel and urinary function and states only mild postoperative pain. Vital signs reviewed and stable. General: Nontoxic, no distress and appears stated age. Derm: Skin warm and dry, normal coloration for ethnicity. Head: Atraumatic, normocephalic and symmetric. Eyes: EOMs intact, no lid lag, and anicteric sclera Mouth: no lip lesions, mucus membranes moist Cardiovascular: regular rate and rhythm with normal S1S2, no murmur, positive posterior tibial pulses bilaterally, and cap refill < 2 seconds. Lungs: Respirations even, regular, and unlabored on room air. Lungs CTA bi laterally, no rhonchi, no rales, no wheezing, and no accessory muscle usage. Abdominal: soft and slightly distended, mild tenderness surrounding incision site. No guarding, no appreciable organomegaly. Dressing in place. Ext: ROM intact. No gross muscle atrophy, no edema, no contractures Neuro: Speech clear, face symmetrical and CN II-XII grossly intact with no noted focal neuro deficits Psych: Alert and oriented to person, place, time, and situation. Appropriate and pleasant affect. Assessment and Plan of Care: Acute postoperative blood loss anemia and thrombocytopenia, greater than expected -Preoperative hemoglobin was 13.7 currently 9.7 Patient was no signs of active bleeding and stable hemoglobins therefore no need for further intervention at this time. We will continue to monitor with repeat morning CBC and transfuse if needed for hemoglobin less than 7. -Thrombocytopenia resolved. Current platelet count 231. Postoperative Hypotension, likely secondary to hypovolemia due to acute post o perative blood loss anemia. Resolved -Postoperative hypotension has resolved and hemoglobin improved. Blood pressure currently 117/67 with heart rate of 77. -Continued close monitoring of vital signs. Appendicitis with perforation Leukocytosis, resolved Sepsis upon arrival, secondary to above -Continue IV antibiotics with Zosyn 3.375 g every 8 hours. -General surgery following, patient underwent laparoscopic appendectomy on 04/14/2024. -Wound/Dressing management, drain management, DVT prophylaxis, and pain management per primary admitting general surgery team. MARIANA drain was removed 04/16/2024. -Continue symptomatic care and pain management. -Blood cultures showing no growth to date. -Continue to encourage use of incentive spirometry 10-15 times hourly while awake. Depression with mood disorder Continue daily medication regimen with BuSpar 5 mg twice daily, Wellbutrin 300 mg nightly, and sertraline 100 mg nightly. Data reviewed: -Morning labs completed and reviewed. CBC showing stable acute blood loss anemia with hemoglobin 9.7. BMP unremarkable. Magnesium 2.1. Liver profile unremarkable with exception of hypoalbuminemia with albumin of 3.0. -Vital signs reviewed. Blood pressure currently 117/67, heart rate 77, respiratory rate 16, temp 99.4 F, and SpO2 of 93% on room air. Thank you for allowing us to participate in the care of this pleasant patient. Do not hesitate to contact us with questions. Someone can be reached from the [facility] hospitalist group all hours of the day at [phone] or via perfect serve. Patient was seen independently by Nurse Pracitioner. This document was prepared using [employer] dictation software. Please allow for errors in [place]keag operator, while rare they do occur. Objective - Vital Signs Vital signs: Vital Signs Temp 98.6 F 04/18/24 02:00 Pulse 78 04/18/24 02:00 Resp 15 04/18/24 02:00 BP 105/68 04/18/24 02:00 Pulse Ox 92 L 04/18/24 02:00 FiO2 Intake & Output 04/17/24 04/18/24 04/18/24 18:59 06:59 18:59 Other: Voiding Method Toilet # Voids 3 1 - Labs CBC & Chem 7: 04/18/24 07:58 04/18/24 07:58 Labs: Abnormal Lab Results - Last 24 Hours (Table) 04/17/24 04/17/24 Range/Units 05:55 05:55 RBC 3.12 L (4.10-5.20) X 10*6/uL Hgb 8.8 L (12.0-15.0) g/dL Hct 27.7 L (37.2-46.3) % MCHC 31.8 L (32.0-37.0) g/dL BUN 4.2 L (9.0-27.0) mg/dL BUN/Creatinine Ratio 7.00 L (12.00-20.00) Ratio Total Bilirubin 0.2 L (0.3-1.2) mg/dL Total Protein 4.4 L (6.2-8.2) g/dL Albumin 2.6 L (3.8-4.9) g/dL Albumin/Globulin Ratio 1.44 L (1.60-3.17) Ratio Microbiology - Last 24 Hours (Table) 04/14/24 01:00 Blood Culture - Preliminary Blood 04/14/24 00:45 Blood Culture - Preliminary Blood
--- NOTE | 2024-04-18 14:32 | P.PN ---
Subjective Progress Note Date: 04/18/24 CHIEF COMPLAINT: Perforated appendicitis HISTORY OF PRESENT ILLNESS: The patient is a 59-year-old female with perforated appendicitis. MARIANA drain was accidentally discontinued. She is tolerating regular diet. Family is at bedside anxious for discharge. No fevers or chills. ROS: No reports of nausea and vomiting. No fevers or chills. No new chest pain. No productive sputum PHYSICAL EXAM: VITAL SIGNS: Reviewed CONSTITUTIONAL: Well developed and in no acute distress. EYES: Conjuctivae without sclera icterus. Extraocular movements grossly intact. HEAD, EARS, NOSE, THROAT: Moist buccal mucosa. Head is atraumatic, normocephalic. Hears conversational speech. No nasal drainage. RESPIRATORY: Non-labored respirations and equal bilateral excursions. CARDIOVASCULAR: Palpable 2+ radial pulses. ABDOMEN: MARIANA site without cellulitis. Incision site clean dry intact. MUSCULOSKELETAL: No gross deformity of the lower extremities noted. No clubbing. No cyanosis. SKIN: Good skin turgor. Well perfused. NEUROLOGIC: Cranial nerves II through XII grossly intact. No focal or lateralizing signs. PSYCH: Appropriate affect. Alert and oriented to person, place and time. CLINICAL LABS: Reviewed. WBC normal 8.5. Hemoglobin 9.7 trending up from 8.8, anemia ASSESSMENT: 1. Perforated appendicitis 2. Anemia PLAN: 1. Discharge pending consultant internship management for antibiotics 2. Continue diet 3. Continue antibiotics Objective - Vital Signs Vital signs: Vital Signs Temp 99.4 F 04/18/24 07:20 Pulse 77 04/18/24 07:20 Resp 16 04/18/24 07:20 BP 117/67 04/18/24 07:20 Pulse Ox 93 L 04/18/24 07:20 FiO2 Intake & Output 04/17/24 04/18/24 04/18/24 18:59 06:59 18:59 Other: Voiding Method Toilet Toilet # Voids 3 1 - Labs CBC & Chem 7: 04/18/24 07:58 04/18/24 07:58 Labs: Abnormal Lab Results - Last 24 Hours (Table) 04/18/24 04/18/24 Range/Units 07:58 07:58 RBC 3.39 L (4.10-5.20) X 10*6/uL Hgb 9.7 L (12.0-15.0) g/dL Hct 29.8 L (37.2-46.3) % BUN 4.3 L (9.0-27.0) mg/dL BUN/Creatinine Ratio 7.17 L (12.00-20.00) Ratio Total Bilirubin <0.2 L (0.3-1.2) mg/dL AST 11 L (13-35) U/L Total Protein 5.0 L (6.2-8.2) g/dL Albumin 3.0 L (3.8-4.9) g/dL Albumin/Globulin Ratio 1.50 L (1.60-3.17) Ratio Microbiology - Last 24 Hours (Table) 04/14/24 01:00 Blood Culture - Preliminary Blood 04/14/24 00:45 Blood Culture - Preliminary Blood
[2024-04-18 15:20] VITALS: BP 116/75; PULSE 73; TEMP 99.1
--- NOTE | 2024-04-18 15:34 | P.PN ---
Subjective Progress Note Date: 04/18/24 Principal diagnosis: Reason for follow-up is perforated appendicitis and peritonitis Patient is a 59-year-old female with past medical history significant depression presenting to the hospital for evaluation of abdominal pain patient has been diagnosed with perforated appendicitis status post laparoscopic appendectomy. On today's evaluation that is 04/18/2024, Patient is afebrile this morning patient denies having any chest pain shortness of breath or cough, the patient is breathing comfortably and currently on room air, patient abdominal pain has decreased in intensity no nausea vomiting did have a bowel movement. Patient white count is 8.50, creatinine 0.6 Objective - Vital Signs Vital signs: Vital Signs Temp 99.4 F 04/18/24 07:20 Pulse 77 04/18/24 07:20 Resp 16 04/18/24 07:20 BP 117/67 04/18/24 07:20 Pulse Ox 93 L 04/18/24 07:20 FiO2 Intake & Output 04/17/24 04/18/24 04/18/24 18:59 06:59 18:59 Other: Voiding Method Toilet Toilet # Voids 3 1 - Exam GENERAL DESCRIPTION: Middle-aged female lying in bed in no distress RESPIRATORY SYSTEM: Unlabored breathing , decreased breath sounds at bases HEART: S1 S2 regular rate and rhythm , ABDOMEN: Soft , mild tenderness EXTREMITIES: No edema feet - Labs CBC & Chem 7: 04/18/24 07:58 04/18/24 07:58 Labs: Abnormal Lab Results - Last 24 Hours (Table) 04/18/24 04/18/24 Range/Units 07:58 07:58 RBC 3.39 L (4.10-5.20) X 10*6/uL Hgb 9.7 L (12.0-15.0) g/dL Hct 29.8 L (37.2-46.3) % BUN 4.3 L (9.0-27.0) mg/dL BUN/Creatinine Ratio 7.17 L (12.00-20.00) Ratio Total Bilirubin <0.2 L (0.3-1.2) mg/dL AST 11 L (13-35) U/L Total Protein 5.0 L (6.2-8.2) g/dL Albumin 3.0 L (3.8-4.9) g/dL Albumin/Globulin Ratio 1.50 L (1.60-3.17) Ratio Microbiology - Last 24 Hours (Table) 04/14/24 01:00 Blood Culture - Preliminary Blood 04/14/24 00:45 Blood Culture - Preliminary Blood Assessment and Plan (1) Perforated appendicitis Current Visit: Yes Status: Acute Code(s): K35.32 - AC APPENDICITIS W PERF, LOC PERITONITIS, & GANGR, W/O ABSCS SNOMED Code(s): 75105124 (2) Peritonitis Current Visit: Yes Status: Acute Code(s): K65.9 - PERITONITIS, UNSPECIFIED SNOMED Code(s): 75265530 (3) Allergy to sulfa drugs Current Visit: Yes Status: Acute Code(s): Z88.2 - ALLERGY STATUS TO SULFONAMIDES SNOMED Code(s): 08409692 (4) Leukocytosis Current Visit: Yes Status: Acute Code(s): D72.829 - ELEVATED WHITE BLOOD CELL COUNT, UNSPECIFIED SNOMED Code(s): 664169915 Plan: 1patient presented to hospital with sepsis in this patient who did have fever elevated white count source is acute perforated appendicitis and will need to cover for the enteric gram-negative both aerobes and anaerobes. 2patient is afebrile and the patient white count has normalized, blood culture currently pending 3patient has been shown clinical improvement and the patient has been cleared for discharge by surgical team prescription for oral Ceftin and Flagyl has been sent to the pharmacy Dictation was produced using [employer] dictation software. please excuse any grammatical, word or spelling errors. Time with Patient: Less than 30
--- NOTE | 2024-04-18 16:27 | CDI ---
Documentation Clarification Form Date: 04/18/2024 03:57:05 PM From: Poly Bryant RN, CCDS Phone: [phone] Admit Date: 04/14/2024 09:46:00 AM Patient Name: Adali Ortega Visit Number: [id number] Discharge Date: ATTENTION: The Clinical Documentation Specialists (CDI) and [facility] Coding Staff appreciate your assistance in clarifying documentation. Please respond to the clarification below the line at the bottom and electronically sign. The CDI & [facility] Coding staff will review the response and follow-up if needed. Please note: Queries are made part of the Legal Health Record. If you have any questions, please contact the author of this message via ITS. Clara Sapp PA-C The patient has sepsis documentation in the ID consult on 04/14/24 and Medicine ongoing progress notes starting on 04/15/24. Based on this information and the findings below, is there an additional diagnosis that is clinically appropriate for this patient? History/Risk Factors: Depression Clinical Indicators: 59-year-old female present with nausea, vomiting, and abdominal pain. CT abdomen and pelvis was completed with findings consistent with acute appendicitis. Patient positive for sepsis upon arrival with blood pressure 91/63, heart rate 101, respiratory rate 16, temp elevating up to 100.7 F, and SpO2 of 97% on room air per medicine progress notes. WBC 19.4, Neutrophils 17.1 Treatment: 04/14 Laparoscopic Appendectomy: There was perforation of the appendix Zosyn3.375 GM IVPB Q8 HRS .9 NS1,000 ML Bolus x2, Monitor CBC per orders Encourage use incentive spirometer Is there an additional diagnosis that is clinically appropriate for this patient? [ x ] Sepsis, present on admission [ ] Other, please specify [ ] Unable to determine SIRS Criteria: 2 or more of the following may indicate SIRS Temperature < 96.8F (36C) or > 101.0F (38.3C) Heart Rate > 90 bpm Respiratory Rate > 20 breaths/min or PaCO2 < 32 mmHg White Blood Cell Count > 12,000 or < 4,000 cells/mm3 or > 10% bands (Template Last Reviewed: September 2022) MTDD
--- NOTE | 2024-04-19 09:22 | P.DS ---
Providers Date of admission: 04/14/24 09:46 Expected date of discharge: 04/18/24 Attending physician: Cedric Hernandez Consults: 04/14/24 00:38 Consult Physician Routine Consulting Provider: Stephani Adrian Consult Reason/Comments: medical management Do you want consulting provider notified?: Yes 04/14/24 09:46 Consult Physician Routine Consulting Provider: Bj Spencer Consult Reason/Comments: Perforated appendicitis Do you want consulting provider notified?: Yes Primary care physician: [facility] Course: DISCHARGE DIAGNOSES: 1. Perforated appendicitis 2. Anemia COURSE: The patient is a 59-year-old female with perforated appendicitis. MARIANA drain was accidentally discontinued. She is tolerating regular diet. Family is at bedside anxious for discharge. No fevers or chills. PHYSICAL EXAM: VITAL SIGNS: Reviewed CONSTITUTIONAL: Well developed and in no acute distress. EYES: Conjuctivae without sclera icterus. Extraocular movements grossly intact. HEAD, EARS, NOSE, THROAT: Moist buccal mucosa. Head is atraumatic, normocephalic. Hears conversational speech. No nasal drainage. RESPIRATORY: Non-labored respirations and equal bilateral excursions. CARDIOVASCULAR: Palpable 2+ radial pulses. ABDOMEN: MARIANA site without cellulitis. Incision site clean dry intact. MUSCULOSKELETAL: No gross deformity of the lower extremities noted. No clubbing. No cyanosis. SKIN: Good skin turgor. Well perfused. NEUROLOGIC: Cranial nerves II through XII grossly intact. No focal or lateralizing signs. PSYCH: Appropriate affect. Alert and oriented to person, place and time. CLINICAL LABS: Reviewed. WBC normal 8.5. Hemoglobin 9.7 trending up from 8.8, anemia PLAN: 1. Discharge pending data processing consultant management for antibiotics 2. Continue diet 3. Continue antibiotics Patient Condition at Discharge: Stable Plan - Discharge Summary New Discharge Prescriptions: New HYDROcodone/APAP 5-325MG [[place] 5-325] 1 tab PO Q6HR PRN 3 Days #12 tab PRN Reason: Pain cefUROXime axetiL [Ceftin] 500 mg PO BID 10 Days #20 tab metroNIDAZOLE [Flagyl] 500 mg PO TID #30 tab Continue busPIRone HCL 5 mg PO BID Sertraline [Zoloft] 100 mg PO HS buPROPion HCL [Wellbutrin XL] 300 mg PO HS Semaglutide [Wegovy] 1 mg SQ TH Discharge Medication List Sertraline [Zoloft] 100 mg PO HS 04/08/17 [History] busPIRone HCL 5 mg PO BID 04/08/17 [History] buPROPion HCL [Wellbutrin XL] 300 mg PO HS 07/22/18 [History] Semaglutide [Wegovy] 1 mg SQ TH 04/14/24 [History] HYDROcodone/APAP 5-325MG [[place] 5-325] 1 tab PO Q6HR PRN 3 Days #12 tab 04/17/24 [Rx] cefUROXime axetiL [Ceftin] 500 mg PO BID 10 Days #20 tab 04/18/24 [Rx] metroNIDAZOLE [Flagyl] 500 mg PO TID #30 tab 04/18/24 [Rx] Follow up Appointment(s)/Referral(s): Real Orozco MD [Primary Care Provider] - 1-2 days Cedric Hernandez MD [STAFF PHYSICIAN] - 04/24/24 2:30 pm Discharge Disposition: HOME SELF-CARE
== END 2024-04-18 17:38 | disposition home or self-care (01) | DRG 853 ==
LOC: EC 21:53 → 6NMEDSUR 04-14 00:40 → 4SSUR 04-14 03:36 → OBSVTOIN 04-14 09:46
PROVIDERS: ADMIT Surgery; ATTEND Surgery
PROC: 0DTJ4ZZ Resection of Appendix, Percutaneous Endoscopic Approach (ICD-10-PCS; principal; 2024-04-14 09:45)
DX: A41.9 Sepsis, unspecified organism (principal); K35.32 Acute appendicitis with perforation, localized peritonitis, and gangrene, without abscess; D62 Acute posthemorrhagic anemia; E87.1 Hypo-osmolality and hyponatremia; I95.9 Hypotension, unspecified; E86.1 Hypovolemia; E83.52 Hypercalcemia; F32.A Depression, unspecified; Z88.2 Allergy status to sulfonamides; Z11.52 Encounter for screening for COVID-19; Z79.85 Long-term (current) use of injectable non-insulin antidiabetic drugs; Z79.899 Other long term (current) drug therapy
CPT/HCPCS: 36415; 74177; 80053; 81003; 82150; 83605; 83690; 83735; 85025; 85027; 85610; 85730; 87040; 87636; 88304; 93005; 96361; 96374; 96375; 99285

== ENCOUNTER 2024-05-09 13:20 | Emergency (ER) | payer BC ==
--- NOTE | 2024-05-30 13:58 | CT ---
Patient Adali Ortega ID [id number] Order # EXAMINATION TYPE: CT abdomen pelvis w con DATE OF EXAM: 05/09/2024 COMPARISON: No comparison available on downtime PACS. INDICATION: Abdominal pain DLP: 682 mGycm, Automated exposure control for dose reduction was used. CONTRAST: 100 mL of Isovue 300. Study performed without Oral Contrast TECHNIQUE: Axial images were obtained from above the diaphragm to the pubic rami in the axial plane a t 5 mm thick sections. Reconstructed images are reviewed on the computer in the coronal plane. FINDINGS: Limited CT sections are obtained the lung bases. The lung bases are clear. CT ABDOMEN: Liver: Normal Spleen: Normal Pancreas: Normal Adrenal glands: The adrenal glands are normal. Gallbladder: Normal Kidneys: No masses are evident. No hydronephrosis is present. No cysts are present. Delayed images were obtained through the kidneys, which remain unremarkable. Aorta: Vascular calcification is within the aorta. Inferior vena cava: Normal. CT PELVIS: Loops of bowel within the abdomen and pelvis are normal. There are loops of bowel which are incom pletely distended or lack oral contrast limiting their evaluation. Large fecal bolus is at the rectum . Appendix: Not identified. No dilated tubular structure or inflammatory changes in. Urinary bladder: Normal. Genitourinary structures: Uterus appears bulky and heterogenous. There may be a 3 cm cyst in the left adnexal region posterior left hemipelvis, example image 201 and 60. Smaller cysts may be adjacent. Osseous structures: No suspicious lytic or sclerotic lesions. IMPRESSION: 1. Somewhat bulky uterus with suspected 3 cm cyst left ovary. Consider follow-up with ultrasound. 2. Large fecal bolus in the rectum. Correlate for constipation and impaction.
--- NOTE | 2024-06-10 18:15 | US ---
EXAMINATION TYPE: US pelvic complete DATE OF EXAM: 05/09/2024 COMPARISON: NONE CLINICAL INDICATION: Abnormal CT, pelvic pain. Site ID [facility] Patient Adali Ortega ID [id number] TECHNIQUE: . Transabdominal sonographic images of the pelvis were acquired. Date of LMP: 10-20 years ago. EXAM MEASUREMENTS: Uterus: 5.0 x 2.6 x 3.7 cm Endometrial Stripe: 0.9 cm Right Ovary: 2.2 x 2.5 x 2.2 cm Left Ovary: 4.0 x 3.0 x 3.7 cm IMPRESSION: Thickened endometrium for a postmenopausal female. Recommend further evaluation with direct visualiza tion and HIGHWAY MAINTENANCE TECHNICIAN follow-up.
== END 2024-05-09 20:10 | disposition home or self-care (01) ==
LOC: EC 13:20
DX: N83.209 Unspecified ovarian cyst, unspecified side (principal)
CPT/HCPCS: 74177; 76856; 93975; 99284